=== PATIENT | female | born 1950 | race Caucasian/White ===

== ENCOUNTER 2020-11-20 16:50 | Inpatient (IN) | payer OTHER, MEDICARE ==
[~2020-11-20] VITALS: Ht 162 cm; Wt 105.5 kg
[2020-11-20] MEDS ORDERED: ONDANSETRON 4 MG/2 ML (SDV) Z0FRAN IV PRN (18:15)
[2020-11-20] MEDS ORDERED: ANTACID SUSP 30 ML UDC (MYLANTA) PO PRN (18:15)
[2020-11-20] MEDS ORDERED: ONDANSETRON 4 MG (ZOFRAN) ORAL DISSOLVE TAB PO PRN (18:15)
[2020-11-20] MEDS ORDERED: BISACODYL 10 MG SUPP (DULCOLAX) PR PRN (18:15)
[2020-11-20] MEDS ORDERED: MELATONIN 3 MG TABLET PO PRN (18:15)
[2020-11-20] MEDS ORDERED: MILK OF MAGNESIA 400 MG/5 ML 30 ML UDC PO PRN (18:15)
[2020-11-20] MEDS ORDERED: polyethylene glycoL POWDER 17 GM (MIRALAX) PACK PO PRN (18:15)
[2020-11-20] MEDS ORDERED: ENOXAPARIN 100 MG/1 ML (LOVENOX) SYR SC NR (18:45)
[2020-11-20] MEDS: NS IV 1000 ML 1,000 ML IV SCH (18:49)
[2020-11-20 20:29] LABS: HEMOGLOBIN 11.1 g/dL (11.5-16.0); MEAN PLATELET VOLUME 9.7 fL (9.0-12.2); WHITE BLOOD COUNT 13.3 10^3/uL (4.3-11.0)
[2020-11-20 20:42] LABS: BUN/CREATININE RATIO 12; CALCIUM 8.2 MG/DL (8.5-10.1); CARBON DIOXIDE 24 MMOL/L (21-32); CHLORIDE 99 MMOL/L (98-107); CREATININE SERUM 0.65 MG/DL (0.60-1.30); GFR ESTIMATED > 60; GLUCOSE 133 MG/DL (70-105); POTASSIUM 3.8 MMOL/L (3.6-5.0); SODIUM 133 MMOL/L (135-145)
[2020-11-20] MEDS: inSUlin ASPART (NovoLOG) 1 UNIT/0.01 ML (CHARGE PER UNIT) SC SCH (22:01)
[2020-11-21] MEDS: NS IV 1000 ML 1,000 ML IV SCH ×3 (01:43→16:43)
[2020-11-21] MEDS ORDERED: ASPI-1238 PO (02:05)
[2020-11-21] MEDS ORDERED: LOSA25TA41 PO (02:05)
[2020-11-21 03:42] LABS: HEMOGLOBIN 10.4 g/dL (11.5-16.0); MEAN PLATELET VOLUME 9.7 fL (9.0-12.2); WHITE BLOOD COUNT 11.8 10^3/uL (4.3-11.0)
[2020-11-21 03:55] LABS: BUN/CREATININE RATIO 11; CALCIUM 8.1 MG/DL (8.5-10.1); CARBON DIOXIDE 23 MMOL/L (21-32); CHLORIDE 100 MMOL/L (98-107); GFR ESTIMATED > 60; GLUCOSE 175 MG/DL (70-105); MAGNESIUM 1.8 MG/DL (1.6-2.4); POTASSIUM 3.6 MMOL/L (3.6-5.0); SODIUM 135 MMOL/L (135-145)
[2020-11-21] MEDS ORDERED: ENOXAPARIN 100 MG/1 ML (LOVENOX) SYR SC SCH (05:00)
[2020-11-21] MEDS: MAGNESIUM 1 GM/100 ML IVPB 100 ML IV SCH (06:19)
[2020-11-21] MEDS: KCL 20 MEQ TAB (K-DUR) PO SCH (06:19)
[2020-11-21] MEDS: POTASSIUM CL 10MEQ/50ML IVPB 50 ML IV SCH ×3 (06:19→07:51)
[2020-11-21] MEDS: inSUlin ASPART (NovoLOG) 1 UNIT/0.01 ML (CHARGE PER UNIT) SC SCH ×4 (06:20→20:18)
[2020-11-21] MEDS: ENOXAPARIN 60 MG/0.6 ML (LOVENOX) SYR SC SCH ×2 (06:48→18:03)
--- NOTE | 2020-11-21 10:04 | Occupational Therapy Eval ---
OT Evaluation-General/PLF Medical Diagnosis Admission Date Nov 20, 2020 at 18:30 Medical Diagnosis: L JANET; hypotensive episode Onset Date: Nov 19, 2020 Therapy Diagnosis Therapy Diagnosis: Decreased ADL status Precautions Precautions/Isolations: Fall Prevention, Standard Precautions, Pressure Ulcer Weight Bear Status Weight Bearing Restriction: Weight Bearing/Tolerated Referral Physician: Marcela Referral Reason: Activity Tolerance, Self Care, Evaluation/Treatment, Strengthening/ROM Medical History Additional Medical History see nursing, no H&P. R JANET last year. Current History Per nursing report, no H&P yet in charting: R JANET last year L JANET with full precautions November 19 with vasovagal response post surgery. Expre sses this happened last year with RTHA. CTA shows no PE, but non occlusive DVTs bilaterally (likely from RTHA) Expresses has been checking vitals and been WNL. Reviewed History: Yes Social History Home: Single Level Current Living Status: Other Family (daughter in law) Entry Into Home: Level Entry Steps Into Home: 0 Steps Inside Home: 0 ADL-Prior Level of Function SCALE: Activities may be completed with or without assistive devices. 6-Uaadpocolg-hxbgahe completes the activity by him/herself with no assistance from a helper. 5-Set-up or Clean-up Assistance-helper sets up or cleans up; patient completes activity. Benedict assists only prior to or following the activity. 4-Supervision or Touching Assistance-helper provides verbal cues and/or touching/steadying and/or contact guard assistance as patient completes activity. Assistance may be provided throughout the activity or intermittently. 3-Partial/Moderate Assistance-helper does LESS THAN HALF the effort. Benedict lifts, holds or supports trunk or limbs, but provides less than half the effort. 2-Substantial/Maximal Assistance-helper does MORE THAN HALF the effort. Benedict lifts or holds trunk or limbs and provides more than half the effort. 3-Hzexojpfb-gywxhf does ALL the effort. Patient does none of the effort to complete the activity. Or, the assistance of 2 or more helpers is required for the patient to complete the activity. If activity was not attempted, code reason: 7-Patient Refused. 9-Not Applicable-not attempted and the patient did not perform the activity before the current illness, exacerbation or injury. 10-Not Attempted due to Environmental Limitations-(lack of equipment, weather restraints, etc.). 88-Not Attempted due to Medical Conditions or Safety Concerns. ADL PLOF Comments Pt was IND prior. Owns AE, SPC, and wlker. Plans to d/c to daughter in law's home Self Care: Independent Functional Cognition: Independent DME/Equipment: Bath Chair, Reachers, Shower, Sock Aid DME/Equipment Comments hip kit, walker, SPC, walk in shower with sc. Occupation: meat seafood associate Drive Self: Yes OT Current Status Subjective Pt's nurse gives thorough report for H&P purposes. Pt AxO, son present through session. Just had pain meds, expresses no pain at rest, 2-3/10 pain during ambulation. Pt agrees to OT eval/ treat. Mental Status/Objective Patient Orientation: Person, Place, Situation, Normal For Age Attachments: [place] Catheter, IV, Oxygen, Telemetry, Other-See Comments (abductor pillow) Current Glasses/Contacts: Yes Hearing Aids: No Dentures/Partials: Yes Hand Dominance: Right Upper Extremity ROM WFL BUE Upper Extremity Coordination WFL BUE Upper Extremity Sensation WFL BUE Upper Extremity Strength WFL BUE ADL-Treatment Eating (QC): 6 Oral Hygiene (QC): 6 On/Off Footwear (QC): 1 Other Treatments Pt expresses all precautions with accuracy. Abductor pillow removed. Pt bed mob with increased time and mod A (OT supports LLE during movement). BP from supine to sit: 147/68. Sit to stand from heightened bed with mod Ax2. Stands upright, denies dizziness/ any adverse sx. Ambulates to recliner with increased time, sits with good control. Pt ROM/ MMT WFL. Pt denies issues upon sit, 136/63 BP. Pt denies issues with feeding/ oral care etc. Expresses knowledge with AE for LB dressing, though will d/c to daughter in law's home who does not work, expresses she will assist with any needs. Pt educated on continuation of OT services to address LE dressing/ AE/ continued progression to IND-mod I. Pt agrees, left in recliner with son present, all needs met, call light in reach, educated to press call light when desire to get back to bed. Education OT Patient Education: Correct positioning, Modified ADL techniques, Purpose of tx/functional activities, Reviewed precautions, Safety issues, Transfer techniques, Use of adapted equipment Teaching Recipient: Patient Teaching Methods: Discussion Response to Teaching: Verbalize Understanding, Return Demonstration OT [facility] Goals Harness Preparer Goals Time Frame: Nov 27, 2020 Eating (QC): 6 Oral Hygiene (QC): 6 Toileting Hygiene (QC): 6 Shower/Bathe Self (QC): 5 Upper Body Dressing (QC): 6 Lower Body Dressing (QC): 5 On/Off Footwear (QC): 6 Additional Goals: 1-Demonstrate ADL Tasks, 2-Verbalize Understanding, 3- ImproveStrength/Ilya 1=Demonstrate adherence to instructed precautions during ADL tasks. 2=Patient will verbalize/demonstrate understanding of assistive devices/modifications for ADL. 3=Patient will improve strength/tolerance for activity to enable patient to perform ADL's. OT Education/Plan Problem List/Assessment Assessment: Decreased Activ Tolerance, Dependent Transfers, Impaired Bed Mobility, Impaired Funct Balance, Impaired I ADL's, Impaired Self-Care Skills Discharge Recommendations Plan/Recommendations: Continue POC Therapy Discharge Recommendati: Intermittent Supervision, Home & Family Treatment Plan/Plan of Care Treatment,Training & Education: Yes Patient would benefit from OT for education, treatment and training to promote independence in ADL's, mobility, safety and/or upper extremity function for ADL's. Plan of Care: ADL Retraining, Caregiver Training, Functional Mobility, UE Funct Exercise/Act Treatment Duration: Nov 27, 2020 Frequency: 5 times per week Estimated Hrs Per Day: .25 hour per day Agreement: Yes Rehab Potential: Good Time/GCodes Start Time: 09:40 Stop Time: 10:00 Total Time Billed (hr/min): 20 Billed Treatment Time 1DEMETRI (20) LISA BARNHART OTR Nov 21, 2020 10:04
--- NOTE | 2020-11-21 11:44 | Physical Therapy Evaluation ---
PT Evaluation-General Medical Diagnosis Admission Date Nov 20, 2020 at 18:30 Medical Diagnosis: L JANET; hypotensive episode Onset Date: Nov 19, 2020 Therapy Diagnosis Therapy Diagnosis: decreased mobility Precautions Precautions/Isolations: Fall Prevention, Standard Precautions, Pressure Ulcer Weight Bear Status Right Lower Extremity: Right Full Weight Bearing Left Lower Extremity: Left Full Weight Bearing Referral Physician: Marcela Reason for Referral: Evaluation/Treatment, Gait Medical History Additional Medical History prior R JANET, see nursing notes for additional medical history Current History Transfer from [facility] [place] with hypotension following L THR by Dr. Monteiro. Reviewed History: Yes Social History Home: Single Level Current Living Status: Other Family (daughter in law) Entry Into Home: Level Entry PT Steps Into Home: 0 PT Steps Inside Home: 0 Prior Prior Level of Function SCALE: Activities may be completed with or without assistive devices. 0-Sfdwfnpjto-etlvraf completes the activity by him/herself with no assistance from a helper. 5-Set-up or Clean-up Assistance-helper sets up or cleans up; patient completes activity. Diana assists only prior to or following the activity. 4-Supervision or Touching Assistance-helper provides verbal cues and/or touching/steadying and/or contact guard assistance as patient completes activity. Assistance may be provided throughout the activity or intermittently. 3-Partial/Moderate Assistance-helper does LESS THAN HALF the effort. Diana lifts, holds or supports trunk or limbs, but provides less than half the effort. 2-Substantial/Maximal Assistance-helper does MORE THAN HALF the effort. Diana l ifts or holds trunk or limbs and provides more than half the effort. 6-Fxnljhyqs-xyrsvu does ALL the effort. Patient does none of the effort to complete the activity. Or, the assistance of 2 or more helpers is required for the patient to complete the activity. If activity was not attempted, code reason: 7-Patient Refused. 9-Not Applicable-not attempted and the patient did not perform the activity before the current illness, exacerbation or injury. 10-Not Attempted due to Environmental Limitations-(lack of equipment, weather restraints, etc.). 88-Not Attempted due to Medical Conditions or Safety Concerns. Bed Mobility: 6 Transfers (B,C,W/C): 6 Gait: 6 Stairs: 6 Indoor Mobility (Ambulation): Independent Stairs: Independent Prior Device Use: cane for community ambulation patient works as food and beverage order clerk at [employer] PT Evaluation-Current Subjective Pt. returning from chair to bed upon therapist entry with assist of nursing. Pt. states the chair was very uncomfortable, requested to return to bed. States she doesn't feel she could walk at present time. Pain rated 5/10 in the L hip. Pt/Family Goals home with gfdjdndu-ep-lsq; lives permanently with son Objective Patient Orientation: Person, Place, Time, Situation Attachments: IV ROM/Strength ROM Upper Extremities See OT ROM Lower Extremities R LE is WNL all planes, L hip focal deficits from THR, L knee and ankle is WFL Strength Upper Extremities See OT Strength Lower Extremities Grossly 5/5 R LE, n/a L LE Integumentary/Posture Integumentary see nursing notes Bowel Incontinence: No Bladder Incontinence: No Posture generally upright Neuromuscular (Tone, Coordination, Reflexes) unremarkable Sensory Vision: Functional Hearing: Functional Hand Dominance: Right Sensation Right Upper Extremit: Intact Sensation Left Upper Extremity: Intact Sensation Right Lower Extremit: Intact Sensation Left Lower Extremity: Intact Transfers Sit to Lying (QC): 1 (mod A x 2) Chair/Krd-ne-Idxue Xfer(QC): 1 (min A x 2) Gait Does the Patient Walk?: No and Walking Goal IS indicated Balance Sitting Static: Good Sitting Dynamic: Good Standing Static: Fair Standing Dynamic: Fair Treatment L LE exercises x 10: APs, QS, SLR, hip abd, GS Assessment/Needs Pt. is a 70 y.o. female s/p L THR with hypotension following surgery and who presents with decreased mobility and strength. Pt. would benefit from skilled PT to restore safe mobility and strength for return home with family. Pt. in bed post session with hip wedge in place and all needs met. Reviewed hip precautions with patient and she verbalizes good understanding. Rehab Potential: Good PT Usp Goals Special Duty Nurse Goals PT Usp Goals Time Frame: November 28, 2020 Roll Left & Right (QC): 4 Sit to Lying (QC): 4 Lying-Sitting on Side/Bed(QC): 4 Sit to Stand (QC): 6 Chair/Pkr-ie-Zltrf Xfer(QC): 6 Toilet Transfer (QC): 6 Car Transfer (QC): 6 Walk 10 feet (QC): 6 Walk 50ft with 2 Turns (QC): 6 Walk 150 ft (QC): 6 PT Plan Problem List Problem List: Activity Tolerance, Functional Strength, Safety, Balance, Gait, Transfer, Bed Mobility, ROM Treatment/Plan Treatment Plan: Continue Plan of Care Treatment Plan: Bed Mobility, Concurrent Therapy, Education, Functional Activity Ilya, Functional Strength, Gait, Safety, Therapeutic Exercise, Transfers Treatment Duration: November 28, 2020 Frequency: 11 times per week Estimated Hrs Per Day: .25 hour per day Patient and/or Family Agrees t: Yes Time/GCodes Time In: 1012 Time Out: 1032 Total Billed Treatment Time: 20 Total Billed Treatment 1, EVL 10', Ex 10' URIEL MIRELES PT Nov 21, 2020 11:44
--- NOTE | 2020-11-21 11:59 | History & Physical-Hospitalist ---
History of Present Illness HPI/Chief Complaint Pt is a 70yoCF with a PMH of HTN, HLD, postoperative PE, and osteoarthritis who was admitted to [facility] for hip replacement and was transferred here due to recurrent vasovagal syncope. She reports she was doing well postoperative but nearly passed out when she got up to walk. She had a similar episode after her first hip surgery but it only happened once and resolved. She also had a DVT and PE at that time. She reports getting nauseated, light headed, and just "out of it" when it happens and it can happen at any time. The first couple of time were with position change but yesterday it happened while she was laying in bed. Since transfer here it had not happened until I was in the room. I checked her vitals which remained stable. BS was 119 as well. They only thing she noticed that was different was her pain was increasing. We discussed how pain can cause this but that cardiac evaluation in warranted. She and family member at bedside are in agreement. Source: patient Date Seen 11/21/20 Time Seen by a Provider: 11:54 Attending Physician Irasema Medrano MD PCP Barbara Awad MD Referring Physician Date of Admission Nov 20, 2020 at 18:30 Home Medications & Allergies Home Medications Reviewed patient Home Medication Reconciliation performed by pharmacy medication reconciliations physical therapist technician and/or nursing. Patients Allergies have been reviewed. Allergies Allergies Coded Allergies No Allergy Information Available (Unverified11/20/20) Patient Social History Tobacco Use?: No Smoking Status: Never a Smoker Use of E-Cig and/or Vaping dev: No Substance use?: No Alcohol Use?: No Pt stated abuse/neglect: No Immunizations Up To Date Influenza Vaccine Up-to-Date: No; Not Current First/Initial COVID19 Vaccinat: 11/04/2020 Hepatitis A: Yes Hepatitis B: Yes Current Status status: No status: No Do you have an Advance Directi: No Communicates: Verbally Primary Language: Malawian Preferred Spoken Language: Malawian Is interpretation needed?: No Implanted or Applied Medical D: None Past Medical History HTN, HLD, provoked PE after hip surgery Family Medical History Family Hx: Non contributory Review of Systems Constitutional: No chills, No fever EENTM: no symptoms reported Respiratory: No cough, No short of breath Cardiovascular: see HPI Gastrointestinal: No abdominal pain, No constipation; loss of appetite, nausea Genitourinary: no symptoms reported Musculoskeletal: joint pain Skin: no symptoms reported Psychiatric/Neurological: No Symptoms Reported Physical Exam Physical Exam Vital Signs Vital Signs - First Documented 11/20/20 11/20/20 18:45 19:11 Temp 36.5 Pulse 92 Resp 14 B/P (MAP) 121/67 (85) Pulse Ox 96 O2 Delivery Nasal Cannula O2 Flow Rate 2.00 Capillary Refill : Height, Weight, BMI Height: '" Weight: lbs. oz. kg; 40.00 BMI Method: General Appearance: No Apparent Distress, WD/WN, Obese HEENT: PERRL/EOMI, Moist Mucous Membranes Neck: Normal Inspection, Supple Respiratory: Lungs Clear, No Accessory Muscle Use, No Respiratory Distress Cardiovascular: Regular Rate, Rhythm, No Murmur Gastrointestinal: Normal Bowel Sounds, Non Tender, Soft Extremity: No Calf Tenderness, No Pedal Edema Neurologic/Psychiatric: Alert, Oriented x3, Normal Mood/Affect; No Aphasia, No Facial Droop, No Motor Weakness, No Sensory Deficit Results Results/Procedures Labs Laboratory Tests 11/20/20 19:40 11/21/20 03:28 Patient resulted labs reviewed. Assessment/Plan Admission Diagnosis Vasovagal syncope Admission Status: Inpatient Order (span 2 midnights) Reason for Inpatient Admission: see below Assessment and Plan Vasovagal syncope Recurrent May be related to pain FSBS was 119 while at bedside SBP was 112 HR stayed in the mid 80s Cardiology consulted appreciate recs Oxycodone available for pain Hip replacement Continue pain management PT/OT IRF evaluation Bilateral lower extremity DVTs Continue on Lovenox Usg done at [facility] [place] [place], CTA done as well and negative for PE Previously was on Xarelto so will transition back to that probably tomorrow HTN HLD Resume home meds when able DVT ppx: On treatment dose Lovenox Diagnosis/Problems Diagnosis/Problems (1) DVT (deep venous thrombosis) (2) Vasovagal syncopes IRASEMA MEDRANO MD Nov 21, 2020 11:59
--- NOTE | 2020-11-21 15:06 | Consultation-Cardiology ---
HPI-Cardiology Cardiology Consultation: Date of Consultation 11/21/20 Time Seen by a Provider: 12:45 Date of Admission Attending Physician Anna Medrano MD Admitting Physician Barbara Awad MD Consulting Physician ROSA COLVIN MD, MA, FACP, FACC, FSCAI, CCDS HPI: Chief Complaint: Reason for cardiac consult: Intermittent bradycardia and hypotension HPI 70 yo woman who had L hip replacement 2 days ago, was at the [facility], was transferred to this hosp because had been having episodes of bradycardia and hypotension (self-resolving, brief) at [place]. Pt notes continuing considerable L hip pain since surgery. Denies cp or palp or joanna syncope. Denies shortness of breath. Notes mild, chronic, bilateral leg swelling Review of Systems-Cardiology Review of Systems Constitutional: malaise; No weight loss, No weight gain Eyes: No vision change Ears/Nose/Throat: No ear discharge, No nasal drainage, No recent hearing loss Respiratory: As described under HPI Cardiovascular: As described under HPI Gastrointestinal: No diarrhea, No nausea, No vomiting Genitourinary: No dysuria, No hematuria, No urine frequency changes Musculoskeletal: As describe under HPI Skin: No rash, No ulcerations Psychiatric/Neurological: No seizure, No focal weakness, No syncope Hematologic: No bleeding abnormalities GMN-Yalibr-Upzpoy Hx Patient Social History Smoking Status: Never a Smoker Have you traveled recently?: No Alcohol Use?: No Pt feels they are or have been: No Past Medical History PMH As described under Assessment. Family Medical History Family Medical History: No fam h/o early CAD or SCD reported Allergies and Home Medications Allergies Coded Allergies: No Allergy Information Available (Unverified , 11/20/20) Home Medications Losartan Potassium 25 Mg Tablet, 25 MG PO DAILY, (Reported) Last Action: New Order Patient Home Medication List Home Medication List Reviewed: Yes Physical Exam-Cardiology Physical Exam Vital Signs/I&O 11/21/20 11/21/20 11/21/20 11/21/20 04:00 04:00 05:00 06:00 Pulse 112 105 101 Resp 17 16 16 B/P (MAP) 133/74 (93) 124/76 (92) 136/80 (98) Pulse Ox 99 96 98 98 O2 Delivery Nasal Cannula O2 Flow Rate 2.00 11/21/20 11/21/20 11/21/20 11/21/20 07:00 07:00 08:00 08:10 Temp 36.8 Pulse 113 107 92 Resp 11 26 B/P (MAP) 133/66 (88) 94/60 (71) Pulse Ox 98 99 O2 Delivery Nasal Cannula Nasal Cannula Nasal Cannula O2 Flow Rate 2.00 2.00 1.00 11/21/20 11/21/20 11/21/20 11/21/20 08:19 09:00 10:00 11:00 Pulse 107 98 97 Resp 17 14 17 B/P (MAP) 137/63 (87) 124/60 (81) 123/66 (85) Pulse Ox 94 93 93 93 O2 Delivery Nasal Cannula Nasal Cannula Nasal Cannula Nasal Cannula O2 Flow Rate 1.00 1.00 1.00 1.00 11/21/20 11/21/20 11/21/20 11/21/20 11:34 11:35 11:35 12:00 Temp 36.0 Pulse 102 Resp 14 B/P (MAP) 120/61 (80) Pulse Ox 90 95 O2 Delivery Room Air Room Air Nasal Cannula O2 Flow Rate 2.00 11/21/20 11/21/20 11/21/20 12:38 13:00 14:00 Pulse 104 100 98 Resp 15 14 B/P (MAP) 125/65 (85) 132/72 (92) Pulse Ox 97 97 O2 Delivery Nasal Cannula Nasal Cannula O2 Flow Rate 2.00 2.00 11/21/20 00:00 Intake Total 100 ml Output Total 200 ml Balance -100 ml Capillary Refill : Constitutional: AAO x 3, well-developed, well-nourished HEENT: EOMI, hearing is well preserved; No xanthelasmas are seen Neck: carotid pulses are 2 + bilaterally, with good upstrokes Respiratory: No accessory muscle use; other (good, bilateral air entry) Cardiovascular: regular rate-rhythm, S1 and S2, systolic murmur (soft ABHISHEK at card base) Gastrointestinal: No tender; soft; No guarding, No rebound; audible bowel soun ds Extremities: No clubbing, No cyanosis, No significant edema Neurologic/Psychiatric: oriented x 3, other (able to move all limbs; we did not attemtp motion at L hip) Skin: No rash on exposed areas, No ulcerations on exposed areas Data Review Labs Laboratory Tests 11/20/20 19:40: White Blood Count 13.3H, Red Blood Count 3.90, Hemoglobin 11.1L, Hematocrit 35, Mean Corpuscular Volume 89, Mean Corpuscular Hemoglobin 29, Mean Corpuscular Hemoglobin Concent 32, Red Cell Distribution Width 14.1, Platelet Count 245, Mean Platelet Volume 9.7, Sodium Level 133L, Potassium Level 3.8, Chloride Level 99, Carbon Dioxide Level 24, Anion Gap 10, Blood Urea Nitrogen 8, Creatinine 0.65, Estimat Glomerular Filtration Rate > 60, BUN/Creatinine Ratio 12, Glucose Level 133H, Calcium Level 8.2L, Troponin I < 0.028 11/20/20 20:00: Glucometer 96 11/20/20 20:40: Lactic Acid Level 1.71 11/21/20 03:28: White Blood Count 11.8H, Red Blood Count 3.72L, Hemoglobin 10.4L, Hematocrit 33L , Mean Corpuscular Volume 88, Mean Corpuscular Hemoglobin 28, Mean Corpuscular Hemoglobin Concent 32, Red Cell Distribution Width 14.2, Platelet Count 249, Mean Platelet Volume 9.7, Sodium Level 135, Potassium Level 3.6, Chloride Level 100, Carbon Dioxide Level 23, Anion Gap 12, Blood Urea Nitrogen 8, Creatinine 0.70, Estimat Glomerular Filtration Rate > 60, BUN/Creatinine Ratio 11, Glucose Level 175H, Calcium Level 8.1L, Phosphorus Level 2.0L, Magnesium Level 1.8 11/21/20 10:08: Glucometer 119H A/P-Cardiology Assessment/Admission Diagnosis Episodes of bradycardia and hypotension in the setting of post-op pain: likely vasovagal S/p L THR (11/19/20) at [facility] H/o DVT Discussion and Recomendations * iv fluids * iv atropine if symptomatic chelsi * Anticoag * Monitor labs * Echo * I discussed her case with Dr [facility] FACP [facility] Nov 21, 2020 15:06
[2020-11-21] MEDS ORDERED: RT-ALBUTEROL SULF 2.5 MG/3 ML PRE-MIX VIAL INH PRN (15:30)
[2020-11-22] MEDS: NS IV 1000 ML 1,000 ML IV SCH ×3 (00:08→16:26)
[2020-11-22 04:12] LABS: MAGNESIUM 1.9 MG/DL (1.6-2.4); PHOSPHORUS 2.1 MG/DL (2.3-4.7)
[2020-11-22 06:13] LABS: HEMOGLOBIN 9.6 g/dL (11.5-16.0); WHITE BLOOD COUNT 10.5 10^3/uL (4.3-11.0)
[2020-11-22 06:23] LABS: BUN/CREATININE RATIO 12; CALCIUM 7.9 MG/DL (8.5-10.1); CARBON DIOXIDE 27 MMOL/L (21-32); CHLORIDE 104 MMOL/L (98-107); CREATININE SERUM 0.66 MG/DL (0.60-1.30); GFR ESTIMATED > 60; GLUCOSE 119 MG/DL (70-105); POTASSIUM 3.9 MMOL/L (3.6-5.0); SODIUM 137 MMOL/L (135-145)
[2020-11-22] MEDS: POTASSIUM CL 10MEQ/50ML IVPB 50 ML IV SCH (06:31)
[2020-11-22] MEDS: MAGNESIUM 1 GM/100 ML IVPB 100 ML IV SCH (06:31)
[2020-11-22] MEDS: KCL 20 MEQ TAB (K-DUR) PO SCH (06:31)
[2020-11-22] MEDS: inSUlin ASPART (NovoLOG) 1 UNIT/0.01 ML (CHARGE PER UNIT) SC SCH ×4 (06:31→20:09)
[2020-11-22] MEDS: ENOXAPARIN 60 MG/0.6 ML (LOVENOX) SYR SC SCH (06:34)
[2020-11-22] MEDS ORDERED: CYCLOBENZAPRINE 10 MG (FLEXERIL) TAB PO PRN (09:00)
--- NOTE | 2020-11-22 09:03 | Progress Note - Hospitalist ---
Subjective HPI/CC On Admission Date Seen by Provider: Nov 22, 2020 Time Seen by Provider: 09:00 Pt is a 70yoCF with a PMH of HTN, HLD, postoperative PE, and osteoarthritis who was admitted to [facility] for hip replacement and was transferred here due to recurrent vasovagal syncope. She reports she was doing well postope rative but nearly passed out when she got up to walk. She had a similar episode after her first hip surgery but it only happened once and resolved. She also had a DVT and PE at that time. She reports getting nauseated, light headed, and just "out of it" when it happens and it can happen at any time. The first couple of time were with position change but yesterday it happened while she was laying in bed. Since transfer here it had not happened until I was in the room. I checked her vitals which remained stable. BS was 119 as well. They only thing she noticed that was different was her pain was increasing. We discussed how pain can cause this but that cardiac evaluation in warranted. She and family member at bedside are in agreement. Subjective/Events-last exam Pt reports feeling well today. No further episodes. Awaiting echo. Discussed that syncope likely vasovagal from pain crisis. PT in to see as I left. Focused Exam Lactate Level 11/20/20 20:40: Lactic Acid Level 1.71 Objective Exam Vital Signs Vital Signs Date Time Temp Pulse Resp B/P (MAP) Pulse Ox O2 Delivery O2 Flow Rate FiO2 11/22/20 08:25 94 Nasal Cannula 2.00 11/22/20 08:00 112 21 135/57 (83) 11/22/20 07:49 36.7 11/21/20 15:15 28 Capillary Refill : General Appearance: No Apparent Distress, WD/WN, Obese Respiratory: Lungs Clear, No Respiratory Distress Cardiovascular: Regular Rate, Rhythm, No Murmur Gastrointestinal: Normal Bowel Sounds, Non Tender, Soft Neurologic/Psychiatric: Alert, Oriented x3 Results/Procedures Lab Laboratory Tests 11/22/20 03:31 Patient resulted labs reviewed. Assessment/Plan Assessment and Plan Assess & Plan/Chief Complaint Vasovagal syncope Recurrent and seems to be associated with pain BP and HR stable Cardiology consulted appreciate recs Oxycodone available for pain Hip replacement Continue pain management PT/OT IRF evaluation Flexeril added at her request for pain control Bilateral lower extremity DVTs Continue on Lovenox [place] [facility] [place] as [place] and negative for PE Previously was on Xarelto so will transition back to that probably tomorrow HTN HLD Resume home meds when able DVT ppx: On treatment dose Lovenox Diagnosis/Problems Diagnosis/Problems (1) DVT (deep venous thrombosis) (2) Vasovagal syncopes IRASEMA ALBRECHT MD Nov 22, 2020 09:03
--- NOTE | 2020-11-22 09:12 | Physical Therapy Daily Note ---
PT Daily Note-Current Subjective Pt. in bed, denies pain at present time but states "I'm comfortable and don't really want to move." Pt. does agree to PT. Mental Status Patient Orientation: Person, Place, Time, Situation Attachments: Oxygen, [place] Catheter, Polar Pack, IV Transfers SCALE: Activities may be completed with or without assistive devices. 1-Buefazfwox-qbuskwo completes the activity by him/herself with no assistance from a helper. 5-Set-up or Clean-up Assistance-helper sets up or cleans up; patient completes activity. [place] assists only prior to or following the activity. 4-Supervision or Touching Assistance-helper provides verbal cues and/or touching/steadying and/or contact guard assistance as patient completes activity. Assistance may be provided throughout the activity or intermittently. 3-Partial/Moderate Assistance-helper does LESS THAN HALF the effort. [place] lifts, holds or supports trunk or limbs, but provides less than half the effort. 2-Substantial/Maximal Assistance-helper does MORE THAN HALF the effort. [place] lifts or holds trunk or limbs and provides more than half the effort. 3-Jkrgwcgxa-bozhcy does ALL the effort. Patient does none of the effort to complete the activity. Or, the assistance of 2 or more helpers is required for the patient to complete the activity. If activity was not attempted, code reason: 7-Patient Refused. 9-Not Applicable-not attempted and the patient did not perform the activity before the current illness, exacerbation or injury. 10-Not Attempted due to Environmental Limitations-(lack of equipment, weather restraints, etc.). 88-Not Attempted due to Medical Conditions or Safety Concerns. Lying to Sitting/Side of Bed(Q: 4 Sit to Stand (QC): 4 Chair/Dho-ds-Hkpcp Xfer(QC): 4 Weight Bearing Right Lower Extremity: Right Full Weight Bearing Left Lower Extremity: Left Full Weight Bearing Exercises Supine Ex: Ankle pumps, Quad Set, Straight leg raise, Hip abd/add Supine Reps: 10 Seated Therapy Exercises: Long arc quads, Hamstring Curls Seated Reps: 10 Treatments L LE exercises and transfer bed to chair Assessment Current Status: Good Progress Pt. needs assist with all exercises on the L LE but did gradually improve knee and hip ROM. She did very well with transfers bed to chair requiring only min A. Pt. up in chair post session with call light, O2 in situ and all needs met. 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25 hour per day Patient and/or Family Agrees t: Yes Time/GCodes Time In: 841 Time Out: 904 Total Billed Treatment Time: 23 Total Billed Treatment 1, FA 15', Ex 8' URIEL MIRELES PT Nov 22, 2020 09:12
--- NOTE | 2020-11-22 15:08 | Progress Note - Cardiology ---
Cardiology SOAP Progress Note Subjective: No cp or palp or syncope or shortness of breath Malaise present but improving No n/v/d Objective: I&O/Vital Signs 11/22/20 11/22/20 11/22/20 11/22/20 04:00 04:06 05:00 06:00 Pulse 87 92 93 Resp 20 16 15 B/P (MAP) 131/77 (95) 137/94 (108) 132/74 (93) Pulse Ox 91 93 94 96 O2 Delivery Nasal Cannula Nasal Cannula Nasal Cannula Nasal Cannula O2 Flow Rate 2.00 2.00 2.00 2.00 11/22/20 11/22/20 11/22/20 11/22/20 07:00 07:00 07:49 08:00 Temp 36.7 Pulse 94 93 112 Resp 17 21 B/P (MAP) 140/70 (93) 135/57 (83) Pulse Ox 94 94 O2 Delivery Nasal Cannula Nasal Cannula O2 Flow Rate 2.00 2.00 11/22/20 11/22/20 11/22/20 11/22/20 08:25 09:00 10:00 11:00 Pulse 104 98 97 Resp 15 15 16 B/P (MAP) 124/61 (82) 130/67 (88) Pulse Ox 94 91 91 91 O2 Delivery Nasal Cannula Nasal Cannula Nasal Cannula Nasal Cannula O2 Flow Rate 2.00 2.00 2.00 2.00 11/22/20 11/22/20 11/22/20 11/22/20 12:00 12:04 12:04 12:30 Pulse 92 95 Resp 16 B/P (MAP) 137/77 (97) Pulse Ox 93 94 O2 Delivery Nasal Cannula Room Air Room Air O2 Flow Rate 2.00 11/22/20 11/22/20 11/22/20 11/22/20 12:57 13:00 13:38 14:00 Temp 36.9 Pulse 97 94 Resp 14 13 B/P (MAP) 135/68 (90) 138/66 (90) Pulse Ox 91 92 O2 Delivery Nasal Cannula Nasal Cannula Nasal Cannula O2 Flow Rate 2.00 2.00 2.00 11/22/20 00:00 Intake Total 1700 ml Output Total 2000 ml Balance -300 ml Constitutional: AAO x 3, well-developed, well-nourished Respiratory: No accessory muscle use; other (good, bilateral air entry) Cardiovascular: regular rate-rhythm, S1 and S2, systolic murmur (soft ABHISHEK at card base) Gastrointestional: No tender; soft; No guarding, No rebound; audible bowel sounds Extremities: No clubbing, No cyanosis, No significant edema Neurologic/Psychiatric: oriented x 3, other (able to move all limbs; we did not attemtp motion at L hip) Skin: No rash on exposed areas, No ulcerations on exposed areas Results/Procedures: Labs Laboratory Tests 11/21/20 15:30: Glucometer 119H 11/21/20 20:16: Glucometer 89 11/22/20 03:31: White Blood Count 10.5, Red Blood Count 3.32L, Hemoglobin 9.6L, Hematocrit 30L, Mean Corpuscular Volume 91, Mean Corpuscular Hemoglobin 29, Mean Corpuscular Hemoglobin Concent 32, Red Cell Distribution Width 14.4, Platelet Count 250, Mean Platelet Volume 10.0, Sodium Level 137, Potassium Level 3.9, Chloride Level 104, Carbon Dioxide Level 27, Anion Gap 6, Blood Urea Nitrogen 8, Creatinine 0.66, Estimat Glomerular Filtration Rate > 60, BUN/Creatinine Ratio 12, Glucose Level 119H, Calcium Level 7.9L, Phosphorus Level 2.1L, Magnesium Level 1.9 11/22/20 10:30: Glucometer 152H Microbiology 11/20/20 MRSA Screen - Final, Complete MRSA not isolated A/P: Assessment: Episodes of bradycardia and hypotension in the setting of post-op pain: likely vasovagal S/p L THR (11/19/20) at [facility] H/o DVT Echo of 11/22/20: LVEF 60-65%, mild MR, mild RV enlargement, PASP 35-40 mmHg Plan: * iv fluids * iv atropine if symptomatic chelsi * Anticoag * Monitor labs * I discussed her echo results and her her CV issues with her and answered questions ROSA COLVIN MD FACP FAC CCDS Nov 22, 2020 15:08
[2020-11-22] MEDS: RIVAROXABAN 15 MG TABLET (XARELTO) PO SCH (17:28)
[2020-11-23] MEDS: NS IV 1000 ML 1,000 ML IV SCH ×3 (02:06→11:43)
[2020-11-23] MEDS: RIVAROXABAN 15 MG TABLET (XARELTO) PO SCH ×2 (05:43→19:58)
[2020-11-23 05:47] LABS: HEMOGLOBIN 9.3 g/dL (11.5-16.0); MEAN PLATELET VOLUME 9.6 fL (9.0-12.2); WHITE BLOOD COUNT 10.7 10^3/uL (4.3-11.0)
[2020-11-23 06:12] LABS: BUN/CREATININE RATIO 13; CALCIUM 8.4 MG/DL (8.5-10.1); CARBON DIOXIDE 26 MMOL/L (21-32); CHLORIDE 104 MMOL/L (98-107); CREATININE SERUM 0.62 MG/DL (0.60-1.30); GFR ESTIMATED > 60; GLUCOSE 123 MG/DL (70-105); MAGNESIUM 1.9 MG/DL (1.6-2.4); PHOSPHORUS 2.6 MG/DL (2.3-4.7); POTASSIUM 3.7 MMOL/L (3.6-5.0); SODIUM 138 MMOL/L (135-145)
[2020-11-23] MEDS: inSUlin ASPART (NovoLOG) 1 UNIT/0.01 ML (CHARGE PER UNIT) SC SCH ×4 (06:16→22:28)
--- NOTE | 2020-11-23 09:24 | Progress Note - Cardiology ---
Cardiology SOAP Progress Note Subjective: Sitting up in recliner at the bedside Denies any c/o CP, palpitations, syncope, near syncope No c/o SOB Objective: I&O/Vital Signs 11/24/20 11/24/20 11/24/20 11/24/20 00:23 02:17 04:00 07:37 Temp 36.5 36.5 36.5 36.5 Pulse 104 104 80 97 Resp 22 18 B/P (MAP) 124/74 (91) 120/70 (87) 130/76 (94) Pulse Ox 93 93 95 91 O2 Delivery Room Air Nasal Cannula Room Air O2 Flow Rate 2.00 11/24/20 00:00 Intake Total 1190 ml Balance 1190 ml Constitutional: AAO x 3, well-developed, well-nourished Respiratory: No accessory muscle use; other (good, bilateral air entry) Cardiovascular: regular rate-rhythm, S1 and S2, systolic murmur (soft ABHISHEK at card base) Gastrointestional: No tender; soft; No guarding, No rebound; audible bowel sounds Extremities: No clubbing, No cyanosis, No significant edema Neurologic/Psychiatric: oriented x 3, other (able to move all limbs; we did not attemtp motion at L hip) Skin: No rash on exposed areas, No ulcerations on exposed areas Results/Procedures: Labs Laboratory Tests 11/23/20 11:10: Glucometer 168H 11/23/20 16:02: Glucometer 123H 11/23/20 21:11: Glucometer 97 11/24/20 05:23: Phosphorus Level 3.3, Magnesium Level 1.9 11/24/20 06:07: Glucometer 116H 11/24/20 08:15: Glucometer 140H Microbiology 11/20/20 MRSA Screen - Final, Complete MRSA not isolated A/P: Assessment: Episodes of bradycardia and hypotension in the setting of post-op pain: likely vasovagal S/p L THR (11/19/20) at [facility] H/o DVT Echo of 11/22/20: LVEF 60-65%, mild MR, mild RV enlargement, PASP 35-40 mmHg Plan: * iv fluids * iv atropine if symptomatic chelsi - no further episodes * Continue anticoag with Xarelto * Monitor labs PABLITO AYON [facility] Nov 23, 2020 09:24
--- NOTE | 2020-11-23 10:15 | Physical Therapy Daily Note ---
PT Daily Note-Current Subjective Patient rates left hip pain 4/10. Agrees to PT. Pain Numeric Pain Scale: 4 Location: Left Location Body Site: Hip Pain Description: Acute Mental Status Patient Orientation: Normal For Age Transfers SCALE: Activities may be completed with or without assistive devices. 2-Erwcykbijm-ixybang completes the activity by him/herself with no assistance from a helper. 5-Set-up or Clean-up Assistance-helper sets up or cleans up; patient completes activity. [place] assists only prior to or following the activity. 4-Supervision or Touching Assistance-helper provides verbal cues and/or touching/steadying and/or contact guard assistance as patient completes activity. Assistance may be provided throughout the activity or intermittently. 3-Partial/Moderate Assistance-helper does LESS THAN HALF the effort. [place] lifts, holds or supports trunk or limbs, but provides less than half the effort. 2-Substantial/Maximal Assistance-helper does MORE THAN HALF the effort. [place] lifts or holds trunk or limbs and provides more than half the effort. 1-Lakusglxh-snyick does ALL the effort. Patient does none of the effort to complete the activity. Or, the assistance of 2 or more helpers is required for the patient to complete the activity. If activity was not attempted, code reason: 7-Patient Refused. 9-Not Applicable-not attempted and the patient did not perform the activity before the current illness, exacerbation or injury. 10-Not Attempted due to Environmental Limitations-(lack of equipment, weather restraints, etc.). 88-Not Attempted due to Medical Conditions or Safety Concerns. Lying to Sitting/Side of Bed(Q: 3 (minimal assist for left LE) Sit to Stand (QC): 4 (CGA) Chair/Ehh-lz-Gavtc Xfer(QC): 4 (CGA) Toilet Transfer (QC): 4 (CGA) Weight Bearing Right Lower Extremity: Right Full Weight Bearing Left Lower Extremity: Left Full Weight Bearing Gait Training Does the Patient Walk?: Yes Distance: 175' Walk 10 feet (QC): 4 Walk 50 ft with 2 Turns(QC): 4 Walk 150 ft (QC): 4 Gait Assistive Device: FWW slow, antalgic, functional gait sequence Exercises Supine Ex: Ankle pumps, Quad Set, Heel Slides Supine Reps: 12 (AAROM left LE) Seated Therapy Exercises: Ankle pumps, Long arc quads Seated Reps: 15 Assessment Patient improving with treatment plan. Increased distance with gait training. VC's for reciprocal pattern. PT Icu Manager Goals Icu Manager Goals PT Fdc Goals Time Frame: November 28, 2020 Roll Left & Right (QC): 4 Sit to Lying (QC): 4 Lying-Sitting on Side/Bed(QC): 4 Sit to Stand (QC): 6 Chair/Dsj-di-Jvsca Xfer(QC): 6 Toilet Transfer (QC): 6 Car Transfer (QC): 6 Walk 10 feet (QC): 6 Walk 50ft with 2 Turns (QC): 6 Walk 150 ft (QC): 6 PT Plan Treatment/Plan Treatment Plan: Continue Plan of Care Treatment Plan: Bed Mobility, Concurrent Therapy, Education, Functional Activity Ilya, Functional Strength, Gait, Safety, Therapeutic Exercise, Transfers Treatment Duration: November 28, 2020 Frequency: 11 times per week Estimated Hrs Per Day: .25 hour per day Patient and/or Family Agrees t: Yes Time/GCodes Time In: 855 Time Out: 918 Total Billed Treatment Time: 23 Total Billed Treatment 1 visit EX 10 min GT 13 min TJ JEFFERSON PT Nov 23, 2020 10:15
[2020-11-23] MEDS ORDERED: NAPR-915 PO (10:23)
[2020-11-23] MEDS ORDERED: TR1C15 TP (10:23)
[2020-11-23] MEDS ORDERED: ACET325T38 PO (10:23)
--- NOTE | 2020-11-23 11:37 | Occupational Ther Daily Note ---
OT Current Status-Daily Note Subjective Pt alert, sitting in recliner. Pt stated that therapy was just there. Educated pt on OT services. Pt agrees to therapy stating that her leg just started to calm down. No c/o pain or dizziness. Mental Status/Objective Patient Orientation: Person, Place, Time, Situation ADL-Treatment Discussed with pt AE for lower body dressing since pt has full hip precautions. Pt stated that she does know about equipment but she has family 20/02 and they assist her with all of that. She also stated that the family wants her to go somewhere for 24 hour care because they are scared she will have more episodes. Therapy Code Descriptions/Definitions Functional [place] Measure: 0=Not Assessed/NA 4=Minimal Assistance 1=Total Assistance 5=Supervision or Setup 2=Maximal Assistance 6=Modified [place] 3=Moderate Assistance 7=Complete IndependenceSCALE: Activities may be completed with or without assistive devices. 7-Dxrxvectlr-agcwwme completes the activity by him/herself with no assistance from a helper. 5-Set-up or Clean-up Assistance-helper sets up or cleans up; patient completes activity. [place] assists only prior to or following the activity. 4-Supervision or Touching Assistance-helper provides verbal cues and/or touching/steadying and/or contact guard assistance as patient completes act ivity. Assistance may be provided throughout the activity or intermittently. 3-Partial/Moderate Assistance-helper does LESS THAN HALF the effort. [place] lifts, holds or supports trunk or limbs, but provides less than half the effort. 2-Substantial/Maximal Assistance-helper does MORE THAN HALF the effort. [place] lifts or holds trunk or limbs and provides more than half the effort. 1-Oyyseiudy-axlomk does ALL the effort. Patient does none of the effort to complete the activity. Or, the assistance of 2 or more helpers is required for the patient to complete the activity. If activity was not attempted, code reason: 7-Patient Refused. 9-Not Applicable-not attempted and the patient did not perform the activity before the current illness, exacerbation or injury. 10-Not Attempted due to Environmental Limitations-(lack of equipment, weather restraints, etc.). 88-Not Attempted due to Medical Conditions or Safety Concerns. Other Treatment Pt completed B UE exercises against gravity. Skilled instruction for correct technique on B UE exercises to increase strength and activity tolerance for daily functional tasks. Exercises consisted of horizontal shldr abd/add, shldr flex/ext, bicep/tricep flex/ext and shldr elevation-2 sets 3 reps. Pt demonstrated understanding of exercises though will need continued skilled instruction for correct technique. After session, pt sitting in recliner with call light/phone in reach. All need met in room. Education OT Patient Education: Exercise program Teaching Recipient: Patient Teaching Methods: Demonstration, Discussion Response to Teaching: Return Demonstration, Reinforcement Needed OT Care Home Goals Senior Research Engineer Goals Time Frame: Nov 27, 2020 Eating (QC): 6 Oral Hygiene (QC): 6 Toileting Hygiene (QC): 6 Shower/Bathe Self (QC): 5 Upper Body Dressing (QC): 6 Lower Body Dressing (QC): 5 On/Off Footwear (QC): 6 Additional Goals: 1-Demonstrate ADL Tasks, 2-Verbalize Understanding, 3-ImproveStrength/Ilya 1=Demonstrate adherence to instructed precautions during ADL tasks. 2=Patient will verbalize/demonstrate understanding of assistive devices/modifications for ADL. 3=Patient will improve strength/tolerance for activity to enable patient to perform ADL's. OT Education/Plan Problem List/Assessment Assessment: Decreased Activ Tolerance, Decreased UE Strength, Impaired Self- Care Skills Discharge Recommendations Plan/Recommendations: Continue POC Treatment Plan/Plan of Care Patient would benefit from OT for education, treatment and training to promote independence in ADL's, mobility, safety and/or upper extremity function for ADL's. Plan of Care: ADL Retraining, Caregiver Training, Functional Mobility, UE Funct Exercise/Act Treatment Duration: Nov 27, 2020 Frequency: 5 times per week Estimated Hrs Per Day: .25 hour per day Agreement: Yes Rehab Potential: Good Time/GCodes Start Time: 09:38 Stop Time: 09:53 Total Time Billed (hr/min): 15 Billed Treatment Time 1 visit-EX 1 (15 min) EVELYN LIRA Nov 23, 2020 11:37
--- NOTE | 2020-11-23 11:43 | Progress Note - Hospitalist ---
Subjective HPI/CC On Admission Date Seen by Provider: Nov 23, 2020 Time Seen by Provider: 09:30 Pt is a 70yoCF with a PMH of HTN, HLD, postoperative PE, and osteoarthritis who was admitted to [facility] for hip replacement and was transferred here due to recurrent vasovagal syncope. She reports she was doing well postope rative but nearly passed out when she got up to walk. She had a similar episode after her first hip surgery but it only happened once and resolved. She also had a DVT and PE at that time. She reports getting nauseated, light headed, and just "out of it" when it happens and it can happen at any time. The first couple of time were with position change but yesterday it happened while she was laying in bed. Since transfer here it had not happened until I was in the room. I checked her vitals which remained stable. BS was 119 as well. They only thing she noticed that was different was her pain was increasing. We discussed how pain can cause this but that cardiac evaluation in warranted. She and family member at bedside are in agreement. Subjective/Events-last exam She is feeling well today. She is not having any pain. She has not had any more syncopal episodes. She has no other complaints or concerns. Focused Exam Lactate Level 11/20/20 20:40: Lactic Acid Level 1.71 Objective Exam Vital Signs Vital Signs Date Time Temp Pulse Resp B/P (MAP) Pulse Ox O2 Delivery O2 Flow Rate FiO2 11/23/20 09:01 Room Air 11/23/20 08:00 36.7 100 20 129/70 (89) 96 2.00 11/21/20 15:15 28 Capillary Refill : General Appearance: No Apparent Distress, Obese Respiratory: Lungs Clear, Normal Breath Sounds, No Respiratory Distress Cardiovascular: Regular Rate, Rhythm, No Edema, No Murmur Gastrointestinal: Normal Bowel Sounds, Non Tender, Soft Extremity: Normal Inspection, Non Tender, No Pedal Edema Neurologic/Psychiatric: Alert, Oriented x3, No Motor/Sensory Deficits, Normal Mood/Affect Skin: Normal Color, Warm/Dry Results/Procedures Lab Laboratory Tests 11/23/20 05:34 Patient resulted labs reviewed. Assessment/Plan Assessment and Plan Assess & Plan/Chief Complaint Vasovagal syncope Likely related to pain BP and HR stable Cardiology consulted appreciate recs Oxycodone available for pain Hip replacement Continue pain management PT/OT Flexeril as needed Bilateral lower extremity DVTs Continue Xarelto HTN HLD Resume home meds when able DVT ppx: already receiving therapeutic anticoagulation Diagnosis/Problems Diagnosis/Problems (1) Vasovagal syncopes Status: Acute (2) S/P hip replacement Status: Acute (3) DVT (deep venous thrombosis) Status: Acute MARYANN NOGUERA MD Nov 23, 2020 11:43
--- NOTE | 2020-11-23 13:12 | Progress Note - Cardiology ---
Cardiology SOAP Progress Note Subjective: Some gen malaise No cp or palp or syncope No n/v/d Objective: I&O/Vital Signs 11/23/20 11/23/20 11/23/20 11/23/20 03:51 06:31 08:00 09:01 Temp 37.0 36.7 Pulse 97 89 100 Resp 20 20 B/P (MAP) 146/66 (92) 129/70 (89) Pulse Ox 96 96 O2 Delivery Nasal Cannula Nasal Cannula Room Air O2 Flow Rate 2.00 2.00 11/23/20 11/23/20 12:01 12:25 Temp 36.6 Pulse 97 102 Resp 16 B/P (MAP) 127/76 (93) Pulse Ox 93 O2 Delivery Room Air 11/23/20 00:00 Intake Total 780 ml Output Total 1250 ml Balance -470 ml Constitutional: AAO x 3, well-developed, well-nourished Respiratory: No accessory muscle use; other (good, bilateral air entry) Cardiovascular: regular rate-rhythm, S1 and S2, systolic murmur (soft ABHISHEK at card base) Gastrointestional: No tender; soft; No guarding, No rebound; audible bowel sounds Extremities: No clubbing, No cyanosis, No significant edema Neurologic/Psychiatric: oriented x 3, other (able to move all limbs; we did not attemtp motion at L hip) Skin: No rash on exposed areas, No ulcerations on exposed areas Results/Procedures: Labs Laboratory Tests 11/22/20 15:40: Glucometer 114H 11/22/20 20:02: Glucometer 146H 11/23/20 05:34: White Blood Count 10.7, Red Blood Count 3.28L, Hemoglobin 9.3L, Hematocrit 29L, Mean Corpuscular Volume 89, Mean Corpuscular Hemoglobin 28, Mean Corpuscular Hemoglobin Concent 32, Red Cell Distribution Width 14.5, Platelet Count 297, Mean Platelet Volume 9.6, Sodium Level 138, Potassium Level 3.7, Chloride Level 104, Carbon Dioxide Level 26, Anion Gap 8, Blood Urea Nitrogen 8, Creatinine 0.62, Estimat Glomerular Filtration Rate > 60, BUN/Creatinine Ratio 13, Glucose Level 123H, Calcium Level 8.4L, Phosphorus Level 2.6, Magnesium Level 1.9 11/23/20 11:10: Glucometer 168H Microbiology 4/23/21 MRSA Screen - Final, Complete MRSA not isolated Laboratory Tests 11/22/20 03:31 11/23/20 05:34 A/P: Assessment: Episodes of bradycardia and hypotension in the setting of post-op pain: likely vasovagal, no recurrence since being transferred to this hospital from [facility] on 11/20/20 S/p L THR (11/19/20) at [facility] H/o DVT Echo of 11/22/20: LVEF 60-65%, mild MR, mild RV enlargement, PASP 35-40 mmHg Plan: * Reduce iv fluids * Continue anticoag with Xarelto * Monitor labs ROSA COLVIN MD FACP [facility] CCDS Nov 23, 2020 13:12
--- NOTE | 2020-11-23 14:09 | Physical Therapy Daily Note ---
PT Daily Note-Current Subjective Patient agrees to PT. Pain Numeric Pain Scale: 4 Location: Left Location Body Site: Hip Pain Description: Acute Mental Status Patient Orientation: Normal For Age Transfers SCALE: Activities may be completed with or without assistive devices. 0-Tumytpkrcg-oyesoni completes the activity by him/herself with no assistance from a helper. 5-Set-up or Clean-up Assistance-helper sets up or cleans up; patient completes activity. [place] assists only prior to or following the activity. 4-Supervision or Touching Assistance-helper provides verbal cues and/or touching/steadying and/or contact guard assistance as patient completes activity. Assistance may be provided throughout the activity or intermittently. 3-Partial/Moderate Assistance-helper does LESS THAN HALF the effort. [place] lifts, holds or supports trunk or limbs, but provides less than half the effort. 2-Substantial/Maximal Assistance-helper does MORE THAN HALF the effort. [place] lifts or holds trunk or limbs and provides more than half the effort. 2-Iplqvzjto-rwtfqw does ALL the effort. Patient does none of the effort to complete the activity. Or, the assistance of 2 or more helpers is required for the patient to complete the activity. If activity was not attempted, code reason: 7-Patient Refused. 9-Not Applicable-not attempted and the patient did not perform the activity before the current illness, exacerbation or injury. 10-Not Attempted due to Environmental Limitations-(lack of equipment, weather restraints, etc.). 88-Not Attempted due to Medical Conditions or Safety Concerns. Lying to Sitting/Side of Bed(Q: 3 Sit to Stand (QC): 4 Chair/Iwc-gh-Tdvnj Xfer(QC): 4 Toilet Transfer (QC): 4 Weight Bearing Right Lower Extremity: Right Full Weight Bearing Left Lower Extremity: Left Full Weight Bearing Gait Training Does the Patient Walk?: Yes Distance: 200' Walk 10 feet (QC): 4 Walk 50 ft with 2 Turns(QC): 4 Walk 150 ft (QC): 4 Gait Assistive Device: FWW slow and antalgic Exercises Supine Ex: Ankle pumps, Quad Set, Heel Slides Supine Reps: 12 Seated Therapy Exercises: Long arc quads Seated Reps: 15 Assessment Patient tolerated treatment well and transferred to shower bench for nursing assist for shower. PT to increase activity as tolerated by patient. PT Bulk Pallet Builder Goals Halfway Goals PT Halfway Goals Time Frame: November 28, 2020 Roll Left & Right (QC): 4 Sit to Lying (QC): 4 Lying-Sitting on Side/Bed(QC): 4 Sit to Stand (QC): 6 Chair/Ciu-ky-Bltmq Xfer(QC): 6 Toilet Transfer (QC): 6 Car Transfer (QC): 6 Walk 10 feet (QC): 6 Walk 50ft with 2 Turns (QC): 6 Walk 150 ft (QC): 6 PT Plan Treatment/Plan Treatment Plan: Continue Plan of Care Treatment Plan: Bed Mobility, Concurrent Therapy, Education, Functional Activity Ilya, Functional Strength, Gait, Safety, Therapeutic Exercise, Transfers Treatment Duration: November 28, 2020 Frequency: 11 times per week Estimated Hrs Per Day: .25 hour per day Patient and/or Family Agrees t: Yes Time/GCodes Time In: 1331 Time Out: 1354 Total Billed Treatment Time: 23 Total Billed Treatment 1 visit EX 8 min GT 15 min TJ JEFFERSON PT Nov 23, 2020 14:09
[2020-11-24] MEDS: RIVAROXABAN 15 MG TABLET (XARELTO) PO SCH ×2 (05:57→17:18)
[2020-11-24] MEDS: NS IV 1000 ML 1,000 ML IV SCH (05:57)
[2020-11-24] MEDS: inSUlin ASPART (NovoLOG) 1 UNIT/0.01 ML (CHARGE PER UNIT) SC SCH ×4 (06:12→21:16)
[2020-11-24 06:16] LABS: MAGNESIUM 1.9 MG/DL (1.6-2.4); PHOSPHORUS 3.3 MG/DL (2.3-4.7)
[2020-11-24] MEDS: LOSARTAN 25 MG (COZAAR) TAB PO SCH (08:20)
--- NOTE | 2020-11-24 10:17 | Progress Note - Cardiology ---
Cardiology SOAP Progress Note Subjective: Sitting up in recliner at the bedside States she felt nauseated and generally unwell earlier this morning, but feels it has improved No c/o CP, SOB, syncope or near syncope Objective: I&O/Vital Signs 11/25/20 11/25/20 11/25/20 00:30 03:43 08:15 Temp 37.0 36.2 36.4 Pulse 93 99 90 Resp 18 17 18 B/P (MAP) 120/75 (90) 133/77 (95) 118/73 (88) Pulse Ox 94 91 94 O2 Delivery Room Air Room Air Room Air 11/25/20 00:00 Intake Total 1510 ml Output Total 1475 ml Balance 35 ml Constitutional: AAO x 3, well-developed, well-nourished Respiratory: No accessory muscle use; other (good, bilateral air entry) Cardiovascular: regular rate-rhythm, S1 and S2, systolic murmur (soft ABHISHEK at card base) Gastrointestional: No tender; soft; No guarding, No rebound; audible bowel sounds Extremities: No clubbing, No cyanosis, No significant edema Neurologic/Psychiatric: oriented x 3, other (able to move all limbs; we did not attemtp motion at L hip) Skin: No rash on exposed areas, No ulcerations on exposed areas Results/Procedures: Labs Laboratory Tests 11/24/20 11:11: Glucometer 136H 11/24/20 17:03: Glucometer 113H 11/24/20 17:13: Glucometer 108 11/24/20 21:03: Glucometer 118H 11/25/20 03:27: Sodium Level 139, Potassium Level 4.0, Chloride Level 103, Carbon Dioxide Level 28, Anion Gap 8, Blood Urea Nitrogen 9, Creatinine 0.69, Estimat Glomerular Filtration Rate > 60, BUN/Creatinine Ratio 13, Glucose Level 112H, Calcium Level 8.3L, Phosphorus Level 3.6, Magnesium Level 2.0 11/25/20 05:44: Glucometer 115H Microbiology 11/20/20 MRSA Screen - Final, Complete MRSA not isolated A/P: Assessment: Episodes of bradycardia and hypotension in the setting of post-op pain: likely vasovagal, no recurrence since being transferred to this hospital from [facility] on 11/20[facility]20 S/p L THR (11/19/20) at [facility] H/o DVT Xarelto for DVT prophylaxis Echo of 11/22/20: LVEF 60-65%, mild MR, mild RV enlargement, PASP 35-40 mmHg Plan: * Stop IVF * Continue anticoag with Xarelto * Monitor labs PABLITO AYON Nov 24, 2020 10:17
--- NOTE | 2020-11-24 10:46 | Occupational Ther Daily Note ---
OT Current Status-Daily Note Subjective Pt alert, standing with PT. OT took over care from PT. Pt agrees to therapy. C/o pain during session, nrsg brought pain meds. Mental Status/Objective Patient Orientation: Person, Place, Time, Situation Attachments: [place]rost[place] Catheter ADL-Treatment Pt agrees to sponge bath. After set up, pt able to complete upper body, doroteo area and buttocks by self with SBA for safety. Due to hip precautions, assist to complete lower legs and feet. Using hospital gown as upper body clothing, pt able to lift B UE to place over head. Pt declined lower body clothing. Pt has used lower body dressing equipment before and will need to again due to hip precautions though pt states that family does lower body dressing for her at home. Pt declined oral care or toileting at this time. Per clinical judgment, pt able to complete toilet transfer with CGA using grabbars and BSC and toilet hygiene with SBA using FWW and grabbars. Per clinical judgment, pt able to complete oral care in standing at sink with SBA for safety only while pt complete oral care by self. After session, pt sitting in recliner with call light/phone in reach. All needs met in room. Therapy Code Descriptions/Definitions Functional [place] Measure: 0=Not Assessed/NA 4=Minimal Assistance 1=Total Assistance 5=Supervision or Setup 2=Maximal Assistance 6=Modified [place] 3=Moderate Assistance 7=Complete IndependenceSCALE: Activities may be completed with or without assistive devices. 0-Aeikoqzeak-psdgswc completes the activity by him/herself with no assistance fr om a helper. 5-Set-up or Clean-up Assistance-helper sets up or cleans up; patient completes activity. [place] assists only prior to or following the activity. 4-Supervision or Touching Assistance-helper provides verbal cues and/or touching/steadying and/or contact guard assistance as patient completes activity. Assistance may be provided throughout the activity or intermittently. 3-Partial/Moderate Assistance-helper does LESS THAN HALF the effort. [place] lifts, holds or supports trunk or limbs, but provides less than half the effort. 2-Substantial/Maximal Assistance-helper does MORE THAN HALF the effort. [place] lifts or holds trunk or limbs and provides more than half the effort. 3-Hjvltdftb-kdmgui does ALL the effort. Patient does none of the effort to complete the activity. Or, the assistance of 2 or more helpers is required for the patient to complete the activity. If activity was not attempted, code reason: 7-Patient Refused. 9-Not Applicable-not attempted and the patient did not perform the activity before the current illness, exacerbation or injury. 10-Not Attempted due to Environmental Limitations-(lack of equipment, weather restraints, etc.). 88-Not Attempted due to Medical Conditions or Safety Concerns. Oral Hygiene (QC): 4 Shower/Bathe Self (QC): 3 Lower Body Dressing (QC): 2 (assist to don/doff socks) Toileting Hygiene (QC): 4 Toilet Transfer (QC): 4 OT Bus Matron Goals Shelter Goals Time Frame: Nov 27, 2020 Eating (QC): 6 Oral Hygiene (QC): 6 Toileting Hygiene (QC): 6 Shower/Bathe Self (QC): 5 Upper Body Dressing (QC): 6 Lower Body Dressing (QC): 5 On/Off Footwear (QC): 6 Additional Goals: 1-Demonstrate ADL Tasks, 2-Verbalize Understanding, 3-ImproveStrength/Ilya 1=Demonstrate adherence to instructed precautions during ADL tasks. 2=Patient will verbalize/demonstrate understanding of assistive devices/modifications for ADL. 3=Patient will improve strength/tolerance for activity to enable patient to perform ADL's. OT Education/Plan Problem List/Assessment Assessment: Decreased Activ Tolerance, Impaired Self-Care Skills Discharge Recommendations Plan/Recommendations: Continue POC Treatment Plan/Plan of Care Patient would benefit from OT for education, treatment and training to promote i ndependence in ADL's, mobility, safety and/or upper extremity function for ADL's. Plan of Care: ADL Retraining, Caregiver Training, Functional Mobility, UE Funct Exercise/Act Treatment Duration: Nov 27, 2020 Frequency: 5 times per week Estimated Hrs Per Day: .25 hour per day Agreement: Yes Rehab Potential: Good Time/GCodes Start Time: 10:10 Stop Time: 10:38 Total Time Billed (hr/min): 28 Billed Treatment Time 1 visit-ADL 2 (30 min) EVELYN LIRA Nov 24, 2020 10:46
--- NOTE | 2020-11-24 11:01 | Physical Therapy Daily Note ---
PT Daily Note-Current Subjective Patient agrees to PT. Polar pack in place left hip. Pain Numeric Pain Scale: 5-Moderate Pain Location: Left Location Body Site: Hip Pain Description: Acute Mental Status Patient Orientation: Normal For Age Attachments: Polar Pack, IV Transfers SCALE: Activities may be completed with or without assistive devices. 6-Dtzcpguioi-cvhbfav completes the activity by him/herself with no assistance from a helper. 5-Set-up or Clean-up Assistance-helper sets up or cleans up; patient completes activity. [place] assists only prior to or following the activity. 4-Supervision or Touching Assistance-helper provides verbal cues and/or touching/steadying and/or contact guard assistance as patient completes activity. Assistance may be provided throughout the activity or intermittently. 3-Partial/Moderate Assistance-helper does LESS THAN HALF the effort. [place] lifts, holds or supports trunk or limbs, but provides less than half the effort. 2-Substantial/Maximal Assistance-helper does MORE THAN HALF the effort. [place] lifts or holds trunk or limbs and provides more than half the effort. 9-Pfupuxvgd-jiqqcn does ALL the effort. Patient does none of the effort to complete the activity. Or, the assistance of 2 or more helpers is required for the patient to complete the activity. If activity was not attempted, code reason: 7-Patient Refused. 9-Not Applicable-not attempted and the patient did not perform the activity before the current illness, exacerbation or injury. 10-Not Attempted due to Environmental Limitations-(lack of equipment, weather restraints, etc.). 88-Not Attempted due to Medical Conditions or Safety Concerns. Sit to Stand (QC): 4 (CGA for safety) Weight Bearing Right Lower Extremity: Right Full Weight Bearing Left Lower Extremity: Left Full Weight Bearing Gait Training Does the Patient Walk?: Yes Distance: 250' Walk 10 feet (QC): 4 (SBA) Walk 50 ft with 2 Turns(QC): 4 (SBA) Walk 150 ft (QC): 4 (SBA) Gait Assistive Device: FWW slow, antalgic with right hip hike to clear left LE due to limited ROM from edema left hip Exercises Supine Ex: Ankle pumps, Quad Set, Heel Slides Supine Reps: 10 Seated Therapy Exercises: Ankle pumps, Long arc quads Seated Reps: 15 Assessment Patient improving with treatment plan. Increase activity as tolerated by patient. PT Penitentiary Goals Wire Stripping Machine Operator Goals PT Penitentiary Goals Time Frame: November 28, 2020 Roll Left & Right (QC): 4 Sit to Lying (QC): 4 Lying-Sitting on Side/Bed(QC): 4 Sit to Stand (QC): 6 Chair/Ivq-yt-Uwqum Xfer(QC): 6 Toilet Transfer (QC): 6 Car Transfer (QC): 6 Walk 10 feet (QC): 6 Walk 50ft with 2 Turns (QC): 6 Walk 150 ft (QC): 6 PT Plan Treatment/Plan Treatment Plan: Continue Plan of Care Treatment Plan: Bed Mobility, Concurrent Therapy, Education, Functional Activity Ilya, Functional Strength, Gait, Safety, Therapeutic Exercise, Transfers Treatment Duration: November 28, 2020 Frequency: 11 times per week Estimated Hrs Per Day: .25 hour per day Patient and/or Family Agrees t: Yes Time/GCodes Time In: 945 Time Out: 1010 Total Billed Treatment Time: 25 Total Billed Treatment 1 visit EX 10 min GT 15 min TJ JEFFERSON PT Nov 24, 2020 11:01
--- NOTE | 2020-11-24 11:42 | Progress Note - Hospitalist ---
Subjective HPI/CC On Admission Date Seen by Provider: Nov 24, 2020 Time Seen by Provider: 09:20 Pt is a 70yoCF with a PMH of HTN, HLD, postoperative PE, and osteoarthritis who was admitted to [facility] for hip replacement and was transferred here due to recurrent vasovagal syncope. She reports she was doing well postoperative but nearly passed out when she got up to walk. She had a similar episode after her first hip surgery but it only happened once and resolved. She also had a DVT and PE at that time. She reports getting nauseated, light headed, and just "out of it" when it happens and it can happen at any time. The first couple of time were with position change but yesterday it happened while she was laying in bed. Since transfer here it had not happened until I was in the room. I checked her vitals which remained stable. BS was 119 as well. They only thing she noticed that was different was her pain was increasing. We discussed how pain can cause this but that cardiac evaluation in warranted. She and family member at bedside are in agreement. Subjective/Events-last exam She is having some pain in her hip. She has been up and walking with physical therapy. She has been up and to the bathroom. She has been eating and drinking but has not had as much of an appetite. She had a bowel movement yesterday. She denies any shortness of breath or cough. She is using her incentive spirometer. Objective Exam Vital Signs Vital Signs Date Time Temp Pulse Resp B/P (MAP) Pulse Ox O2 Delivery O2 Flow Rate FiO2 11/24/20 11:33 36.5 93 18 121/70 (87) 93 Room Air 11/24/20 04:00 2.00 11/21/20 15:15 28 Capillary Refill : General Appearance: No Apparent Distress, Obese Respiratory: Lungs Clear, Normal Breath Sounds, No Respiratory Distress Cardiovascular: Regular Rate, Rhythm, No Edema, No Murmur Gastrointestinal: Normal Bowel Sounds, Non Tender, Soft Extremity: Normal Inspection, Non Tender, No Pedal Edema Neurologic/Psychiatric: Alert, Oriented x3, No Motor/Sensory Deficits, Normal Mood/Affect Skin: Normal Color, Warm/Dry Results/Procedures Lab Patient resulted labs reviewed. Assessment/Plan Assessment and Plan Assess & Plan/Chief Complaint Vasovagal syncope Likely related to pain BP and HR stable Cardiology consulted appreciate recs Oxycodone available for pain Hip replacement Continue pain management PT/OT Flexeril as needed IRU evaluation Bilateral lower extremity DVTs Continue Xarelto HTN HLD Resume home meds when able DVT ppx: already receiving therapeutic anticoagulation Diagnosis/Problems Diagnosis/Problems (1) Vasovagal syncopes Status: Acute (2) S/P hip replacement Status: Acute (3) DVT (deep venous thrombosis) Status: Acute MARYANN NOGUERA MD Nov 24, 2020 11:42
--- NOTE | 2020-11-24 13:49 | Physical Therapy Daily Note ---
PT Daily Note-Current Subjective Patient agrees to PT. Pain Numeric Pain Scale: 5-Moderate Pain Location: Left Location Body Site: Hip Pain Description: Acute Mental Status Patient Orientation: Normal For Age Transfers SCALE: Activities may be completed with or without assistive devices. 9-Zcljjmqkuq-mzcgykm completes the activity by him/herself with no assistance from a helper. 5-Set-up or Clean-up Assistance-helper sets up or cleans up; patient completes activity. [place] assists only prior to or following the activity. 4-Supervision or Touching Assistance-helper provides verbal cues and/or touching/steadying and/or contact guard assistance as patient completes activity. Assistance may be provided throughout the activity or intermittently. 3-Partial/Moderate Assistance-helper does LESS THAN HALF the effort. [place] lifts, holds or supports trunk or limbs, but provides less than half the effort. 2-Substantial/Maximal Assistance-helper does MORE THAN HALF the effort. [place] lifts or holds trunk or limbs and provides more than half the effort. 6-Nrwodiekf-mxijye does ALL the effort. Patient does none of the effort to complete the activity. Or, the assistance of 2 or more helpers is required for the patient to complete the activity. If activity was not attempted, code reason: 7-Patient Refused. 9-Not Applicable-not attempted and the patient did not perform the activity before the current illness, exacerbation or injury. 10-Not Attempted due to Environmental Limitations-(lack of equipment, weather restraints, etc.). 88-Not Attempted due to Medical Conditions or Safety Concerns. Sit to Lying (QC): 3 Sit to Stand (QC): 4 Toilet Transfer (QC): 4 Weight Bearing Right Lower Extremity: Right Full Weight Bearing Left Lower Extremity: Left Full Weight Bearing Gait Training Does the Patient Walk?: Yes Distance: 250' Walk 10 feet (QC): 4 Walk 50 ft with 2 Turns(QC): 4 Walk 150 ft (QC): 4 Gait Assistive Device: FWW very slow and antalgic Exercises Supine Ex: Ankle pumps, Quad Set, Heel Slides Supine Reps: 10 (AAROM left LE HS) Seated Therapy Exercises: Long arc quads Seated Reps: 15 Assessment Patient progressing with treatment plan. Continues to c/o left groin pain. Increase activity as tolerated by patient. PT Seam Press Operator Goals Care Home Goals PT Seam Press Operator Goals Time Frame: November 28, 2020 Roll Left & Right (QC): 4 Sit to Lying (QC): 4 Lying-Sitting on Side/Bed(QC): 4 Sit to Stand (QC): 6 Chair/Pgy-oi-Skutq Xfer(QC): 6 Toilet Transfer (QC): 6 Car Transfer (QC): 6 Walk 10 feet (QC): 6 Walk 50ft with 2 Turns (QC): 6 Walk 150 ft (QC): 6 PT Plan Treatment/Plan Treatment Plan: Continue Plan of Care Treatment Plan: Bed Mobility, Concurrent Therapy, Education, Functional Activity Ilya, Functional Strength, Gait, Safety, Therapeutic Exercise, Transfers Treatment Duration: November 28, 2020 Frequency: 11 times per week Estimated Hrs Per Day: .25 hour per day Patient and/or Family Agrees t: Yes Time/GCodes Time In: 1301 Time Out: 1328 Total Billed Treatment Time: 27 Total Billed Treatment 1 visit GT 15 min EX 12 min TJ JEFFERSON PT Nov 24, 2020 13:48
--- NOTE | 2020-11-24 16:40 | Progress Note - Cardiology ---
Cardiology SOAP Progress Note Subjective: Gen malaise, but improving No cp or palp or syncope No shortness of breath at rest No n/v/d Objective: I&O/Vital Signs 11/24/20 11/24/20 11/24/20 07:37 09:00 11:33 Temp 36.5 36.5 Pulse 97 93 Resp 18 18 B/P (MAP) 130/76 (94) 121/70 (87) Pulse Ox 91 93 O2 Delivery Room Air Room Air Room Air 11/24/20 00:00 Intake Total 1190 ml Balance 1190 ml Constitutional: AAO x 3, well-developed, well-nourished Respiratory: No accessory muscle use; other (good, bilateral air entry) Cardiovascular: regular rate-rhythm, S1 and S2, systolic murmur (soft ABHISHEK at card base) Gastrointestional: No tender; soft; No guarding, No rebound; audible bowel sounds Extremities: No clubbing, No cyanosis, No significant edema Neurologic/Psychiatric: oriented x 3, other (able to move all limbs; we did not attemtp motion at L hip) Skin: No rash on exposed areas, No ulcerations on exposed areas Results/Procedures: Labs Laboratory Tests 11/23/20 21:11: Glucometer 97 11/24/20 05:23: Phosphorus Level 3.3, Magnesium Level 1.9 11/24/20 06:07: Glucometer 116H 11/24/20 08:15: Glucometer 140H 11/24/20 11:11: Glucometer 136H Microbiology 11/20/20 MRSA Screen - Final, Complete MRSA not isolated Laboratory Tests 11/23/20 05:34 A/P: Assessment: Episodes of bradycardia and hypotension in the setting of post-op pain: likely vasovagal, no recurrence since being transferred to this hospital from [facility] on 11/20[facility]20 S/p L THR (11/19/20) at [facility] H/o DVT Xarelto for DVT prophylaxis Echo of 11/22/20: LVEF 60-65%, mild MR, mild RV enlargement, PASP 35-40 mmHg Plan: * Stop IVF * Continue anticoag with Xarelto * Monitor labs ROSA COLVIN MD FACP [facility] Nov 24, 2020 16:40
[2020-11-24] MEDS: TRIM/SULFAMETH 160/800 (SEPTRA DS) TAB PO SCH (17:18)
[2020-11-25 03:56] LABS: BUN/CREATININE RATIO 13; CALCIUM 8.3 MG/DL (8.5-10.1); CARBON DIOXIDE 28 MMOL/L (21-32); CHLORIDE 103 MMOL/L (98-107); CREATININE SERUM 0.69 MG/DL (0.60-1.30); GFR ESTIMATED > 60; GLUCOSE 112 MG/DL (70-105); PHOSPHORUS 3.6 MG/DL (2.3-4.7); SODIUM 139 MMOL/L (135-145)
[2020-11-25] MEDS: inSUlin ASPART (NovoLOG) 1 UNIT/0.01 ML (CHARGE PER UNIT) SC SCH ×2 (05:04→12:17)
[2020-11-25] MEDS: RIVAROXABAN 15 MG TABLET (XARELTO) PO SCH (06:50)
[2020-11-25] MEDS: LOSARTAN 25 MG (COZAAR) TAB PO SCH (08:46)
[2020-11-25] MEDS: TRIM/SULFAMETH 160/800 (SEPTRA DS) TAB PO SCH (08:46)
--- NOTE | 2020-11-25 09:31 | Progress Note - Cardiology ---
Cardiology SOAP Progress Note Subjective: Sitting up in recliner at the bedside No c/o dizziness, syncope or near syncope No c/o CP or SOB Objective: I&O/Vital Signs 11/25/20 11/25/20 11/25/20 00:30 03:43 08:15 Temp 37.0 36.2 36.4 Pulse 93 99 90 Resp 18 17 18 B/P (MAP) 120/75 (90) 133/77 (95) 118/73 (88) Pulse Ox 94 91 94 O2 Delivery Room Air Room Air Room Air 11/25/20 00:00 Intake Total 1510 ml Output Total 1475 ml Balance 35 ml Constitutional: AAO x 3, well-developed, well-nourished Respiratory: No accessory muscle use; other (good, bilateral air entry) Cardiovascular: regular rate-rhythm, S1 and S2, systolic murmur (soft ABHISHEK at card base) Gastrointestional: No tender; soft; No guarding, No rebound; audible bowel sounds Extremities: No clubbing, No cyanosis, No significant edema Neurologic/Psychiatric: oriented x 3, other (able to move all limbs; we did not attemtp motion at L hip) Skin: No rash on exposed areas, No ulcerations on exposed areas Results/Procedures: Labs Laboratory Tests 11/24/20 11:11: Glucometer 136H 11/24/20 17:03: Glucometer 113H 11/24/20 17:13: Glucometer 108 11/24/20 21:03: Glucometer 118H 11/25/20 03:27: Sodium Level 139, Potassium Level 4.0, Chloride Level 103, Carbon Dioxide Level 28, Anion Gap 8, Blood Urea Nitrogen 9, Creatinine 0.69, Estimat Glomerular Filtration Rate > 60, BUN/Creatinine Ratio 13, Glucose Level 112H, Calcium Level 8.3L, Phosphorus Level 3.6, Magnesium Level 2.0 11/25/20 05:44: Glucometer 115H Microbiology 11/20/20 MRSA Screen - Final, Complete MRSA not isolated A/P: Assessment: Episodes of bradycardia and hypotension in the setting of post-op pain: likely vasovagal, no recurrence since being transferred to this hospital from [facility] on 11/20/20 S/p L THR (11/19/20) at [facility] H/o DVT Xarelto for DVT prophylaxis Echo of 11/22/20: LVEF 60-65%, mild MR, mild RV enlargement, PASP 35-40 mmHg Plan: * Continue anticoag with Xarelto * Monitor labs * F/U as an out pt in 3-4 weeks PABLITO AYON [facility] Nov 25, 2020 09:31
[2020-11-25] MEDS: ACETAMINOPHEN 325 MG TABLET PO PRN ×2 (09:42→12:55)
--- NOTE | 2020-11-25 10:14 | Occupational Ther Daily Note ---
OT Current Status-Daily Note Subjective Pt alert, sitting in recliner. During therapy, pt find out that insurance denied inpatient rehab and she was upset. Pt agrees to therapy. Pt c/o L hip pain. Mental Status/Objective Patient Orientation: Person, Place, Time, Situation Attachments: IV ADL-Treatment Pt requested to have sponge bath. Supplies set up for sponge bath in room. Pt able to complete upper body and upper legs sitting in recliner. SBA in standing to cleanse buttocks/doroteo area. Assist given to wash lower legs and feet then to don EPIFANIO hose and socks. Physician came into room to discuss pt's discharge plans. Call light/phone in reach. All needs met in room. Therapy Code Descriptions/Definitions Functional [place] Measure: 0=Not Assessed/NA 4=Minimal Assistance 1=Total Assistance 5=Supervision or Setup 2=Maximal Assistance 6=Modified [place] 3=Moderate Assistance 7=Complete IndependenceSCALE: Activities may be completed with or without assistive devices. 0-Oxcicjmntk-ebngxwd completes the activity by him/herself with no assistance from a helper. 5-Set-up or Clean-up Assistance-helper sets up or cleans up; patient completes activity. [place] assists only prior to or following the activity. 4-Supervision or Touching Assistance-helper provides verbal cues and/or touching/steadying and/or contact guard assistance as patient completes activity. Assistance may be provided throughout the activity or intermittently. 3-Partial/Moderate Assistance-helper does LESS THAN HALF the effort. [place] lifts, holds or supports trunk or limbs, but provides less than half the effort. 2-Substantial/Maximal Assistance-helper does MORE THAN HALF the effort. [place] lifts or holds trunk or limbs and provides more than half the effort. 4-Uqqgedglh-htzsfe does ALL the effort. Patient does none of the effort to complete the activity. Or, the assistance of 2 or more helpers is required for the patient to complete the activity. If activity was not attempted, code reason: 7-Patient Refused. 9-Not Applicable-not attempted and the patient did not perform the activity before the current illness, exacerbation or injury. 10-Not Attempted due to Environmental Limitations-(lack of equipment, weather restraints, etc.). 88-Not Attempted due to Medical Conditions or Safety Concerns. Shower/Bathe Self (QC): 3 Upper Body Dressing (QC): 5 (Using hospital gown pt was able to demonstrate ability to complete upper body dressing.) Lower Body Dressing (QC): 7 (Pt declined to don lower body clothing.) On/Off Footwear: 2 OT Jail Goals Weave Room Supervisor Goals Time Frame: Nov 27, 2020 Eating (QC): 6 Oral Hygiene (QC): 6 Toileting Hygiene (QC): 6 Shower/Bathe Self (QC): 5 Upper Body Dressing (QC): 6 Lower Body Dressing (QC): 5 On/Off Footwear (QC): 6 Additional Goals: 1-Demonstrate ADL Tasks, 2-Verbalize Understanding, 3- ImproveStrength/Ilya 1=Demonstrate adherence to instructed precautions during ADL tasks. 2=Patient will verbalize/demonstrate understanding of assistive devices/modifications for ADL. 3=Patient will improve strength/tolerance for activity to enable patient to perform ADL's. OT Education/Plan Problem List/Assessment Assessment: Decreased Activ Tolerance, Impaired Self-Care Skills Discharge Recommendations Plan/Recommendations: Continue POC Treatment Plan/Plan of Care Patient would benefit from OT for education, treatment and training to promote independence in ADL's, mobility, safety and/or upper extremity function for ADL's. Plan of Care: ADL Retraining, Caregiver Training, Functional Mobility, UE Funct Exercise/Act Treatment Duration: Nov 27, 2020 Frequency: 5 times per week Estimated Hrs Per Day: .25 hour per day Agreement: Yes Rehab Potential: Good Time/GCodes Start Time: 09:00 Stop Time: 09:23 Total Time Billed (hr/min): 23 Billed Treatment Time 1 visit-ADL 2 (23 min) EVELYN LIRA Nov 25, 2020 10:14
[2020-11-25] MEDS ORDERED: RIVA20TA PO (10:50)
[2020-11-25] MEDS ORDERED: RIVA1TAB PO (10:50)
[2020-11-25] MEDS ORDERED: OXYC1TAB87 PO (10:53)
[2020-11-25] MEDS ORDERED: SULF1TAB35 PO (10:53)
--- NOTE | 2020-11-25 11:32 | Physical Therapy Daily Note ---
PT Daily Note-Current Subjective Pt denies pain before and after therapy session. Pt denies syncope. Pt says she will go to her son's house today upon DC. Mental Status Patient Orientation: Person, Place, Situation Transfers SCALE: Activities may be completed with or without assistive devices. 6-[place]-cwqjfvn completes the activity by him/herself with no assistance from a helper. 5-Set-up or Clean-up Assistance-helper sets up or cleans up; patient completes activity. [place] assists only prior to or following the activity. 4-Supervision or Touching Assistance-helper provides verbal cues and/or touching/steadying and/or contact guard assistance as patient completes activity. Assistance may be provided throughout the activity or intermittently. 3-Partial/Moderate Assistance-helper does LESS THAN HALF the effort. [place] lifts, holds or supports trunk or limbs, but provides less than half the effort. 2-Substantial/Maximal Assistance-helper does MORE THAN HALF the effort. [place] lifts or holds trunk or limbs and provides more than half the effort. 5-[place]-cqrqvt does ALL the effort. Patient does none of the effort to complete the activity. Or, the assistance of 2 or more helpers is required for the patient to complete the activity. If activity was not attempted, code reason: 7-Patient Refused. 9-Not Applicable-not attempted and the patient did not perform the activity before the current illness, exacerbation or injury. 10-Not Attempted due to Environmental Limitations-(lack of equipment, weather restraints, etc.). 88-Not Attempted due to Medical Conditions or Safety Concerns. Sit to stand transfers mod (I) Weight Bearing Right Lower Extremity: Right Full Weight Bearing Left Lower Extremity: Left Full Weight Bearing Gait Training Gait Assistive Device: FWW Pt amb with normal stride length, weight bearing as tolerated x 250ft, CGA. Pt slow and steady balance throughout. Pt back to recliner with legs elevated. Exercises Supine Ex: Ankle pumps, Quad Set, Heel Slides Supine Reps: 15 Seated Therapy Exercises: Long arc quads Seated Reps: 15 Assessment Current Status: Good Progress Pt jessika above very well. Denied pain or symptoms. Pt issued copy of HEP and precautions. Pt verbalized understanding. Pt will be DC'd to son's home, daughter in law to care for pt. Pt will have follow up of PT at outpt facility per pt. Pt showing good post surgical progress. PT Short Term Goals Short Term Goals Time Frame: Nov 25, 2020 PT Sap Mobility Architect Goals Shelter Goals PT Shelter Goals Time Frame: November 28, 2020 Roll Left & Right (QC): 4 Sit to Lying (QC): 4 Lying-Sitting on Side/Bed(QC): 4 Sit to Stand (QC): 6 Chair/Vvh-md-Vydbr Xfer(QC): 6 Toilet Transfer (QC): 6 Car Transfer (QC): 6 Walk 10 feet (QC): 6 Walk 50ft with 2 Turns (QC): 6 Walk 150 ft (QC): 6 PT Plan Treatment/Plan Treatment Plan: Continue Plan of Care Treatment Plan: Bed Mobility, Concurrent Therapy, Education, Functional Activity Ilya, Functional Strength, Gait, Safety, Therapeutic Exercise, Transfers Treatment Duration: November 28, 2020 Frequency: 11 times per week Estimated Hrs Per Day: .25 hour per day Patient and/or Family Agrees t: Yes Time/GCodes Time In: 1030 Time Out: 1110 Total Billed Treatment Time: 40 Total Billed Treatment 1, gait 25', ther ex 15' JOHN RUELAS CPTA Nov 25, 2020 11:32
--- NOTE | 2020-11-25 13:50 | Progress Note - Cardiology ---
Cardiology SOAP Progress Note Subjective: Gen weakness and malaise present but improving No cp or palp or syncope No shortness of breath at rest No n/v/d Objective: I&O/Vital Signs 11/25/20 11/25/20 11/25/20 11/25/20 03:43 08:15 09:00 11:53 Temp 36.2 36.4 36.2 Pulse 99 90 84 Resp 17 18 18 B/P (MAP) 133/77 (95) 118/73 (88) 113/70 (84) Pulse Ox 91 94 93 O2 Delivery Room Air Room Air Room Air Room Air 11/25/20 12:18 Temp 36.2 11/25/20 00:00 Intake Total 1510 ml Output Total 1475 ml Balance 35 ml Constitutional: AAO x 3, well-developed, well-nourished Respiratory: No accessory muscle use; other (good, bilateral air entry) Cardiovascular: regular rate-rhythm, S1 and S2, systolic murmur (soft ABHISHEK at card base) Gastrointestional: No tender; soft; No guarding, No rebound; audible bowel rex nds Extremities: No clubbing, No cyanosis, No significant edema Neurologic/Psychiatric: oriented x 3, other (able to move all limbs; we did not attemtp motion at L hip) Skin: No rash on exposed areas, No ulcerations on exposed areas Results/Procedures: Labs Laboratory Tests 11/24/20 17:03: Glucometer 113H 11/24/20 17:13: Glucometer 108 11/24/20 21:03: Glucometer 118H 11/25/20 03:27: Sodium Level 139, Potassium Level 4.0, Chloride Level 103, Carbon Dioxide Level 28, Anion Gap 8, Blood Urea Nitrogen 9, Creatinine 0.69, Estimat Glomerular Filtration Rate > 60, BUN/Creatinine Ratio 13, Glucose Level 112H, Calcium Level 8.3L, Phosphorus Level 3.6, Magnesium Level 2.0 11/25/20 05:44: Glucometer 115H 11/25/20 11:30: Glucometer 95 Microbiology 11/20/20 MRSA Screen - Final, Complete MRSA not isolated Laboratory Tests 11/25/20 03:27 A/P: Assessment: Episodes of bradycardia and hypotension in the setting of post-op pain: likely vasovagal, no recurrence since being transferred to this hospital from [facility] on 11/20/20 S/p L THR (11/19/20) at [facility] H/o DVT Xarelto for DVT prophylaxis Echo of 11/22/20: LVEF 60-65%, mild MR, mild RV enlargement, PASP 35-40 mmHg Plan: * Continue anticoag with Xarelto * Monitor labs * F/U as an out pt in 3-4 weeks ROSA COLVIN MD FACP [facility] Nov 25, 2020 13:50
[2020-11-25 14:30] VITALS: BP 113/70
== END 2020-11-25 14:25 | disposition home or self-care (01) | DRG 950 ==
LOC: ICU 18:30 → 4TH 11-22 15:05
PROVIDERS: ADMIT Family Medicine; ATTEND Internal Medicine
DX: T84.84XD Pain due to internal orthopedic prosthetic devices, implants and grafts, subsequent encounter (principal); G89.18 Other acute postprocedural pain; I95.89 Other hypotension; R00.1 Bradycardia, unspecified; I10 Essential (primary) hypertension; E78.5 Hyperlipidemia, unspecified; M19.91 Primary osteoarthritis, unspecified site; I34.0 Nonrheumatic mitral (valve) insufficiency; Z86.718 Personal history of other venous thrombosis and embolism; Z86.711 Personal history of pulmonary embolism
CPT/HCPCS: 36415; 80048; 82947; 82962; 83605; 83735; 84100; 84484; 85027; 87081; 93306; 94760

== ENCOUNTER 2021-02-22 23:31 | Emergency (ER) | payer OTHER, MEDICARE ==
[~2021-02-22] VITALS: Ht 162.6 cm; Wt 101.6 kg
[~2021-02-22 23:31] MED LIST: ACET325T38 PO; ASPI-1238 PO; LOSA25TA41 PO; NAPR-915 PO; OXYC1TAB87 PO; RIVA1TAB PO; RIVA20TA PO; SULF1TAB38 PO; TR1C15 TP
--- NOTE | 2021-02-22 23:54 | ED Cardiac General ---
History of Present Illness General Chief Complaint: Cardiac/General Problems Stated Complaint: BLOOD PRESSURE 160/105,LI,NAUSEA,VISION BLURRY Source: patient History of Present Illness Date Seen by Provider: Feb 22, 2021 Time Seen by Provider: 23:43 Initial Comments PT ARRIVES VIA POV FROM HOME WITH SON--LIVES WITH SON C/O ELEVATED BLOOD PRESSURE SINCE AROUND 1330 YESTERDAY AFTERNOON STATES SHE DIDN'T FEEL WELL AND FAMILY TOLD HER SHE DIDN'T LOOK WELL HAD A VERY BAD HEADACHE--TOP OF HER HEAD ALSO HAD NAUSEA, NO VOMITING SO SHE CHECKED HER BLOOD PRESSURE AND IT WAS 160/106 AT 1330 YESTERDAY, SO SHE CHECKED HER BLOOD PRESSURE EVERY 15 MINUTES ALL DAY YESTERDAY, ALL NIGHT CALLED DR. BECKETT'S OFFICE TODAY AND STAFF MEMBER TOLD HER TO INCREASE HER LOSARTAN FROM 25 MG TO 50 MG. SHE TOOK 1 25 MG PILL AT 10:00 AM, AND TOOK SECOND 25 MG PILL AT 1500. HAS BEEN ON LOSARTAN 25 MG DAILY FOR THE LAST 1 1/2 YEARS. DENIES ANY MISSED DOSES HAS BEEN CHECKING HER BLOOD PRESSURE EVERY 30 MINUTES TO HOUR TODAY, AND IT KEEPS GOING UP BP WAS 187/105 JUST PRIOR TO ARRIVAL AT 2245, SO CAME HERE PT STATES SHE NORMALLY DOES NOT CHECK HER BLOOD PRESSURE, ONLY CHECKED IT BECAUSE SHE WAS FEELING BAD. STATES BP NORMALLY 140'S/70'S CONTINUES TO C/O HEADACHE HAS SLIGHT NAUSEA STATES YESTERDAY SHE HAD PALPITATIONS--HEART WAS JUST BEATING HARD, BUT NOT FAST OR IRREGULAR. DOES NOT HAVE THAT TODAY STATES HER VISION IS NOT BLURRY, BUT IS "JUST FEELS A LITTLE OFF" DENIES DIZZINESS OR LIGHTHEADEDNESS NO CHEST PAIN NO SHORTNESS OF BREATH NO SWELLING IN LEGS/ FEET NO PARESTHESIAS OR MOTOR DEFICITS. PT HAS BEEN ON XARELTO FOR OVER A YEAR, DUE TO EXTENSIVE DVT'S AND P.E.'S THAT SHE DEVELOPED POST OP RIGHT HIP REPLACEMENT. DENIES FEVER OR RECENT ILLNESS PT HAS HAD BOTH MODERNA VACCINES--LAST ONE WAS IN DECEMBER NO KNOWN SICK CONTACTS DENIES ANY NEW/RECENT [id number] PCP: DR. KEBEDE Allergies and Home Medications Allergies Coded Allergies: egg (Verified Allergy, Unknown, 02/22/21) Home Medications Acetaminophen 325 Mg Tablet, 650 MG PO Q6H PRN for PAIN-MILD (1-4), (Reported) TAKES 2 (325MG) TABLETS Aspirin 81 Mg Tablet.dr, 81 MG PO DAILY, (Reported) Losartan Potassium 25 Mg Tablet, 25 MG PO DAILY, (Reported) Naproxen 500 Mg Tablet, 500 MG PO BID, (Reported) Oxycodone HCl/Acetaminophen 1 Each Tablet, 1 TAB PO Q4H Prescribed by: MARYANN NOGUERA on 11/25/20 105 Rivaroxaban 1 Each Tab.ds.pk, 1 EACH PO UD 15mg by mouth twice daily x 21 days then 20mg by mouth daily Prescribed by: MARYANN NOGUERA on 11/25/20 105 Rivaroxaban 20 Mg Tablet, 20 MG PO DAILY Prescribed by: MARYANN NOGUERA on 11/25/20 105 Sulfamethoxazole/Trimethoprim 1 Each Tablet, 1 EA PO BID WITH MEALS Prescribed by: MARYANN NOGUERA on 11/25/20 105 Triamcinolone Acet 15 Gm Cr, 1 APPLIC TP DAILY PRN for DRY SKIN, (Reported) Patient Home Medication List Home Medication List Reviewed: Yes Review of Systems Review of Systems Constitutional: no symptoms reported; No chills, No diaphoresis, No dizziness, No fever, No malaise, No weakness EENTM: See HPI Respiratory: No Symptoms Reported; Denies Cough, Denies Shortness of Air Cardiovascular: See HPI; Denies Chest Pain, Denies Edema, Denies Irregular Heart Rate, Denies Lightheadedness, Denies Palpitations, Denies Syncope Gastrointestinal: See HPI; Denies Abdominal Pain, Denies Constipated, Denies Diarrhea; Nausea; Denies Vomiting Genitourinary: No Symptoms Reported Musculoskeletal: no symptoms reported; No back pain, No neck pain Skin: no symptoms reported Psychiatric/Neurological: See HPI, Headache; Denies Numbness, Denies Paresthesia, Denies Seizure, Denies Tingling, Denies Weakness Endocrine: No Symptoms Reported Hematologic/Lymphatic: See HPI, Blood Clots Past Cdgpdgl-Xfojlk-Enpidc Hx Patient Social History Tobacco Use?: No Smoking Status: Never a Smoker Use of E-Cig and/or Vaping Adilson: Never a User Substance use?: No Alcohol Use?: No Past Medical History Surgery/Hospitalization HX: RIGHT HIP REPLACEMENT Surgeries: Yes Joint Replacement, Orthopedic Respiratory: Yes (DVT'S/P.E.'S POST OP HIP REPLACEMENT) Pulmonary Embolism Cardiac: Yes Deep Vein Thrombosis, High Cholesterol, Hypertension Genitourinary: No Gastrointestinal: No Musculoskeletal: Yes (RIGHT HIP REPLACEMENT) Arthritis Endocrine: No HEENT: No (GLASSES) Cancer: No Psychosocial: No Integumentary: No Blood Disorders: No Family Medical History Non contributory Physical Exam Vital Signs Vital Signs - First Documented 02/22/21 23:40 Temp 36.4 Pulse 93 Resp 18 B/P (MAP) 171/117 (135) Pulse Ox 98 O2 Delivery Room Air Capillary Refill : Height, Weight, BMI Height: '" Weight: lbs. oz. kg; 40.00 BMI Method: General Appearance: No Apparent Distress, WD/WN, Anxious, Obese Neck: Normal Inspection, Non Tender, Supple; No Carotid Bruit, No JVD Respiratory: Normal Breath Sounds, No Accessory Muscle Use, No Respiratory D istress Cardiovascular: Regular Rate, Rhythm, No Edema, No JVD, No Murmur, Normal Peripheral Pulses Gastrointestinal: Non Tender, Soft Extremity: Normal Inspection, Normal Range of Motion, Non Tender, No Calf Tenderness, No Pedal Edema Neurologic/Psychiatric: Alert, Oriented x3, No Motor/Sensory Deficits, wood scrap handler II- XII Norm as Tested, Other (ANXIOUS) Skin: Normal Color, Warm/Dry; No Rash Progress/Results/Core Measures Results/Orders Lab Results Laboratory Tests Test 02/23/21 00:10 Range/Units White Blood Count 10.6 4.3-11.0 10^3/uL Red Blood Count 5.38 H 3.80-5.11 10^6/uL Hemoglobin 14.6 11.5-16.0 g/dL Hematocrit 46 35-52 % Mean Corpuscular Volume 85 80-99 fL Mean Corpuscular Hemoglobin 27 25-34 pg Mean Corpuscular Hemoglobin Concent 32 32-36 g/dL Red Cell Distribution Width 16.5 H 10.0-14.5 % Platelet Count 351 130-400 10^3/uL Mean Platelet Volume 9.1 9.0-12.2 fL Immature Granulocyte % (Auto) 0 % Neutrophils (%) (Auto) 63 42-75 % Lymphocytes (%) (Auto) 26 12-44 % Monocytes (%) (Auto) 8 0-12 % Eosinophils (%) (Auto) 3 0-10 % Basophils (%) (Auto) 1 0-10 % Neutrophils # (Auto) 6.6 1.8-7.8 10^3/uL Lymphocytes # (Auto) 2.7 1.0-4.0 10^3/uL Monocytes # (Auto) 0.8 0.0-1.0 10^3/uL Eosinophils # (Auto) 0.3 0.0-0.3 10^3/uL Basophils # (Auto) 0.1 0.0-0.1 10^3/uL Immature Granulocyte # (Auto) 0.0 0.0-0.1 10^3/uL Prothrombin Time 12.6 12.2-14.7 SEC INR Comment 0.9 0.8-1.4 Activated Partial Thromboplast Time 32 24-35 SEC Sodium Level 143 135-145 MMOL/L Potassium Level 4.1 3.6-5.0 MMOL/L Chloride Level 105 98-107 MMOL/L Carbon Dioxide Level 24 21-32 MMOL/L Anion Gap 14 5-14 MMOL/L Blood Urea Nitrogen 14 7-18 MG/DL Creatinine 0.84 0.60-1.30 MG/DL Estimat Glomerular Filtration Rate 67 BUN/Creatinine Ratio 17 Glucose Level 103 70-105 MG/DL Calcium Level 9.2 8.5-10.1 MG/DL Corrected Calcium 9.1 8.5-10.1 MG/DL Magnesium Level 2.0 1.6-2.4 MG/DL Total Bilirubin 0.2 0.1-1.0 MG/DL Aspartate Amino Transf (AST/SGOT) 10 5-34 U/L Alanine Aminotransferase (ALT/SGPT) 17 0-55 U/L Alkaline Phosphatase 117 40-136 U/L Total Creatine Kinase 28 L 29-168 U/L Creatine Kinase MB 0.7 <6.6 NG/ML Myoglobin 24.3 10.0-92.0 NG/ML Troponin I < 0.028 <0.028 NG/ML B-Type Natriuretic Peptide < 10.0 <100.0 PG/ML Total Protein 7.4 6.4-8.2 GM/DL Albumin 4.1 3.2-4.5 GM/DL TSH [place] Testing 2.88 0.35-4.94 UIU/ML My Orders Orders - LISA BRADY DO Ed Iv/Invasive Line Start (02/22/21 23:49) Ekg Tracing (02/22/21 23:49) Monitor-Rhythm Ecg Trace Only (02/22/21 23:49) BNP (7/26/21 23:49) Cbc With Automated Diff (02/22/21 23:49) Comprehensive Metabolic Panel (02/22/21 23:49) Creatine Kinase (02/22/21 23:49) Creatine Kinase Mb (02/22/21 23:49) Magnesium (02/22/21 23:49) Protime With Inr (02/22/21 23:49) Partial Thromboplastin Time (02/22/21 23:49) Thyroid Analyzer (02/22/21 23:49) Myoglobin Serum (02/22/21 23:49) Troponin I (02/22/21 23:49) Hydralazine Injection (Apresoline Inject (02/23/21 00:00) Chest 1 View, Ap/Pa Only (02/23/21 00:22) Ct Head Wo-R/O Stroke (02/23/21 00:57) Medications Given in ED Current Medications Medications Dose Ordered Sig/Michael Route Start Time Stop Time Status Last Admin Dose Admin Hydralazine HCl 10 mg ONCE ONCE IV 02/23/21 00:00 02/23/21 00:01 DC 02/23/21 00:03 10 MG Vital Signs/I&O 02/22/21 02/23/21 23:40 02:15 Temp 36.4 36.4 Pulse 93 86 Resp 18 18 B/P (MAP) 171/117 (135) 142/83 (135) Pulse Ox 98 98 O2 Delivery Room Air Room Air Progress Progress Note : Progress Note GIVEN HYDRALAZINE FOR BLOOD PRESSURE BP DOWN TO 150'S/70'S, AND STATES SHE FEELS ALOT BETTER, BUT HEADACHE IS NOT BETTER, PT CONTINUES TO PLAY GAMES ON ELECTRONIC DEVICE, LAUGHING AND JOKING WITH STAFF, VERY TALKATIVE. WILL OBTAIN CT OF HEAD CT OF HEAD IS ESSENTIALLY NORMAL/ NO ACUTE PROCESS BP CONTINUES TO TREND DOWN, AND PT'S SYMPTOMS CONTINUE TO IMPROVE BP 140'S/70'S AT DISMISSAL; PT STATES THIS IS MORE HER NORMAL BP PT PLAYING GAMES ON ELECTRONIC DEVICE THROUGHOUT ER STAY PT REMAINED VERY PLEASANT AND JOVIAL THROUGHOUT ER STAY Initial ECG Impression Date: Feb 22, 2021 Initial ECG Impression Time: 23:50 Initial ECG Rate: 81 Initial ECG Rhythm: Normal Sinus Diagnostic Imaging Comments CXR--NO ACUTE PROCESS, PENDING RADIOLOGIST REVIEW CT HEAD--NO ACUTE PROCESS, PER [facility] RADIOLOGIST VIA PHONE AT [phone] Reviewed: Reviewed by Me Departure Impression Primary Impression: Hypertensive urgency Disposition: 01 HOME, SELF-CARE Condition: Improved Departure-Patient Inst. Decision time for Depature: 02:05 Referrals: TRAY KEBEDE MD (PCP/Family) Primary Care Physician Patient Instructions: High Blood Pressure (DC), DASH Diet Add. Discharge Instructions: HOME, REST CONTINUE TO TAKE LOSARTAN 50 MG DAILY FOLLOW UP WITH YOUR DR THIS WEEK FOR FURTHER CARE, RETURN TO ER IF WORSE All discharge instructions reviewed with patient and/or family. Voiced understanding. LISA BRADY DO Feb 22, 2021 23:53
[2021-02-23] MEDS ORDERED: hydrALAZINE (APESOLINE) 20 MG/ML VIAL IV ONE
[2021-02-23 00:19] LABS: BASOPHILS # (AUTO) 0.1 10^3/uL (0.0-0.1); BASOPHILS % (AUTO) 1 % (0-10); EOSINOPHILS # (AUTO) 0.3 10^3/uL (0.0-0.3); EOSINOPHILS % (AUTO) 3 % (0-10); HEMATOCRIT 46 % (35-52); HEMOGLOBIN 14.6 g/dL (11.5-16.0); LYMPHOCYTES # (AUTO) 2.7 10^3/uL (1.0-4.0); LYMPHOCYTES % (AUTO) 26 % (12-44); MEAN CORPUSCULAR HEMOGLOBIN 27 pg (25-34); MEAN CORPUSCULAR HGB CONC 32 g/dL (32-36); MEAN CORPUSCULAR VOLUME 85 fL (80-99); MEAN PLATELET VOLUME 9.1 fL (9.0-12.2); MONOCYTES # (AUTO) 0.8 10^3/uL (0.0-1.0); MONOCYTES % (AUTO) 8 % (0-12); NEUTROPHILS # (AUTO) 6.6 10^3/uL (1.8-7.8); NEUTROPHILS % (AUTO) 63 % (42-75); PLATELET COUNT 351 10^3/uL (130-400); WHITE BLOOD COUNT 10.6 10^3/uL (4.3-11.0)
[2021-02-23 00:34] LABS: ALBUMIN 4.1 GM/DL (3.2-4.5)
[2021-02-23 00:35] LABS: CHLORIDE 105 MMOL/L (98-107); POTASSIUM 4.1 MMOL/L (3.6-5.0); SODIUM 143 MMOL/L (135-145)
[2021-02-23 00:36] LABS: CALCIUM 9.2 MG/DL (8.5-10.1)
[2021-02-23 00:37] LABS: GLUCOSE 103 MG/DL (70-105); TOTAL PROTEIN 7.4 GM/DL (6.4-8.2)
[2021-02-23 00:38] LABS: CARBON DIOXIDE 24 MMOL/L (21-32)
[2021-02-23 00:39] LABS: BILIRUBIN,TOTAL 0.2 MG/DL (0.1-1.0)
[2021-02-23 00:40] LABS: ALKALINE PHOSPHATASE 117 U/L (40-136)
[2021-02-23 00:41] LABS: CREATININE SERUM 0.84 MG/DL (0.60-1.30); GFR ESTIMATED 67
[2021-02-23 00:42] LABS: BUN/CREATININE RATIO 17
[2021-02-23 00:43] LABS: PROTHROMBIN TIME PATIENT 12.6 SEC (12.2-14.7)
[2021-02-23 00:44] LABS: ALANINE AMINOTRANSFERASE 17 U/L (0-55); CREATINE KINASE 28 U/L (29-168); INR 0.9 (0.8-1.4)
[2021-02-23 00:52] LABS: CREATINE KINASE MB 0.7 NG/ML (<6.6)
[2021-02-23 01:05] LABS: TSH (THYROID ANALYZER) 2.88 UIU/ML (0.35-4.94)
[2021-02-23 02:15] VITALS: BP 142/83
--- NOTE | 2021-02-23 07:10 | Diagnostic Imaging Report ---
Portable erect AP chest at 1235 INDICATION: Hypertension. There are no prior studies available for comparison. FINDINGS: The heart size is within normal limits. The lungs are clear. There is no evidence for failure, pneumonia or for a pleural effusion. The mediastinum is not widened. The osseous structures are intact. IMPRESSION: There is no evidence for active disease. Dictated by: Dictated on workstation # [id number]
--- NOTE | 2021-02-23 07:14 | Diagnostic Imaging Report ---
PROCEDURE: CT head wo r/o stroke. TECHNIQUE: Multiple contiguous axial images were obtained through the brain without the use of intravenous contrast. Auto Exposure Controls were utilized during the CT exam to meet ALARA standards for radiation dose reduction. INDICATION: Fell, confusion. FINDINGS: There is no mass, shift of the midline or hemorrhage to suggest an acute intracranial abnormality. There is no sign of an asymmetric hyperdense vessel either. The ventricles are not abnormally dilated. There are vague areas of low density in the periventricular white matter bilaterally. These findings are nonspecific but may relate to encephalomalacia from microvascular ischemia. Mild cortical atrophy is also seen. The bone windows show no sign of a fracture or of a destructive lesion. The orbits are symmetrical and within normal limits. The sinuses are generally clear. IMPRESSION: 1. There is no evidence for an acute intracranial abnormality. 2. If clinical concern regarding an underlying abnormality persists, then MRI would be recommended for further study. Dictated by: Dictated on workstation # [id number]
== END 2021-02-23 02:15 | disposition home or self-care (01) ==
LOC: EDUNIT# 23:31 → ER 23:36
DX: I10 Essential (primary) hypertension (principal); E66.9 Obesity, unspecified; Z68.41 Body mass index [BMI] 40.0-44.9, adult; Z86.711 Personal history of pulmonary embolism; Z86.718 Personal history of other venous thrombosis and embolism; Z79.01 Long term (current) use of anticoagulants; Z79.82 Long term (current) use of aspirin
CPT/HCPCS: 36415; 70450; 71045; 80053; 82550; 82553; 83735; 83874; 83880; 84443; 84484; 85025; 85610; 85730; 93005; 93041; 96374